=== PATIENT | female | born 1945 | race Caucasian/White ===

== ENCOUNTER → 2017-01-02 | Outpatient (CLI) | payer OTHER ==
[~2017-01-02] MED LIST: ACET-1138 PO; ACET1TAB84 PO; ASPEC325 PO; ASPI81TA28 PO; BNC/20125 PO; CHOL100010 PO; CLR5 PO; EVS60 PO; LAMO200T38 PO; NAPR1TAB9 PO; PRLSR20 PO; RALO60TA12 PO; RSTOPS OP; SIMV10TA5 PO; ULT50X PO; [UNRECOGNIZED DRUG - CODE] PO
--- NOTE | 2017-01-02 12:16 | DIAGNOSTIC IMAGING REPORT ---
LEFT INJ MAJOR JN SHLDR,HIP,KNEE CLINICAL HISTORY: L HIP, 2CC OF CELESTONE, 8CC MARCAINE, INJECTEDhip pain. Arthritis. COMPARISON STUDY: None FLUOROSCOPY TIME: 17 seconds. FINDINGS: Successful administration of 2 cc of Celestone, 8 cc of Marcaine IMPRESSION: Successful left hip injection Electronically signed by: Seferino Del Toro M.D. 01/02/2017 12:15 PM Dictated Date/Time: 01/02/2017 12:14 PM
== END | disposition home or self-care (01) ==
LOC: C.RADBC 09:48
PROVIDERS: ATTEND Orthopaedic Surgery
DX: M16.12 Unilateral primary osteoarthritis, left hip (principal)

== ENCOUNTER → 2017-02-22 | Outpatient (CLI) | payer OTHER ==
[~2017-02-22] MED LIST changes: -BNC/20125 PO; -EVS60 PO; -NAPR1TAB9 PO; -RALO60TA12 PO
[2017-02-22 12:58] LABS: BLOOD UREA NITROGEN 21 mg/dl (7-18); BUN/CREATININE RATIO 17.4 (10-20); CARBON DIOXIDE 32 mmol/L (21-32); CHLORIDE 103 mmol/L (98-107); GLUCOSE 97 mg/dl (70-99); POTASSIUM 4.3 mmol/L (3.5-5.1); SODIUM 141 mmol/L (136-145)
== END | disposition home or self-care (01) ==
LOC: C.LAB 10:44
PROVIDERS: ATTEND Nurse Practitioner
DX: N18.2 Chronic kidney disease, stage 2 (mild) (principal)

== ENCOUNTER 2017-03-01 05:20 | Inpatient (IN) | payer OTHER ==
[2017-02-13 08:28] VITALS: BMI 41.0
--- NOTE | 2017-02-13 09:04 | PAT Medication Instructions ---
Service Date Feb 13, 2017. Current Home Medication List Acetaminophen (Tylenol Arthritis Ext Rel), 1,300 MG PO BID Aspirin (Aspirin Ec), 81 MG PO QAM Cholecalciferol (Vitamin D), 4,000 INTER.UNIT PO QPM Cyclosporine (Restasis Eye Drops), 1 DROP OP BID Desloratadine (Clarinex *), 5 MG PO QAM Lamotrigine (Lamictal), 200 MG PO QAM Omeprazole (Prilosec), 40 MG PO QPM Simvastatin (Zocor), 10 MG PO HS [Spironlactone/Hctz], 1 TAB PO QAM Medication Instructions For Your Scheduled Surgery - Hold the following medications the morning of surgery: [Spironlactone/Hctz], 1 TAB PO QAM Desloratadine (Clarinex *), 5 MG PO QAM - Take the following medications the morning of surgery with a sip of water OTHERWISE NOTHING TO EAT OR DRINK AFTER MIDNIGHT: Acetaminophen (Tylenol Arthritis Ext Rel), 1,300 MG PO BID (may take up to 4 hours prior to surgery if needed) Aspirin (Aspirin Ec), 81 MG PO QAM Lamotrigine (Lamictal), 200 MG PO QAM Cyclosporine (Restasis Eye Drops), 1 DROP OP BID - Take the following medications as scheduled the night before surgery: Acetaminophen (Tylenol Arthritis Ext Rel), 1,300 MG PO BID Omeprazole (Prilosec), 40 MG PO QPM Simvastatin (Zocor), 10 MG PO HS Cyclosporine (Restasis Eye Drops), 1 DROP OP BID Cholecalciferol (Vitamin D), 4,000 INTER.UNIT PO QPM If you have any questions please call us at [phone] or [phone] or [phone]
[2017-02-13 09:50] LABS: BASO % 0.4 %; BASO ABS # 0.02 K/uL (0-0.2); COMPLETE YES; EOS % 3.3 %; HEMATOCRIT 45.6 % (37-47); IG% 0.6 %; LYMPH % 26.4 %; LYMPH ABS # 1.43 K/uL (1.2-3.4); MEAN CELL VOLUME 91.9 fL (80-100); MEAN CORPUSCULAR HEMOGLOBIN 31.3 pg (25-34); MEAN PLATELET VOLUME 11.1 fL (7.4-10.4); MONO % 6.7 %; NEUT % 62.6 %; PLATELET COUNT 189 K/uL (130-400); RED BLOOD COUNT 4.96 M/uL (4.2-5.4); WHITE BLOOD COUNT 5.41 K/uL (4.8-10.8)
[2017-02-13 09:55] LABS: PROTHROMBIN TIME (PATIENT) 10.8 SECONDS (9.0-12.0)
--- NOTE | 2017-02-13 10:01 | DIAGNOSTIC IMAGING REPORT ---
CHEST PREADMISSION(PA/LAT) CLINICAL HISTORY: PAT preoperative evaluation COMPARISON STUDY: 11/20/2015 FINDINGS: Chronic change left base. Lungs otherwise appear clear. Heart top normal in terms of size. IMPRESSION: Chronic change. No acute process. Electronically signed by: Seferino Del Toro M.D. 02/13/2017 9:59 AM Dictated Date/Time: 02/13/2017 9:58 AM
[2017-02-13 11:05] LABS: BUN/CREATININE RATIO 22.1 (10-20); CALCIUM 9.4 mg/dl (8.5-10.1); CREATININE 1.5 mg/dl (0.60-1.20); POTASSIUM 4.6 mmol/L (3.5-5.1)
--- NOTE | 2017-02-24 01:28 | HISTORY & PHYSICAL EXAMINATION ---
DATE OF ADMISSION: 03/01/2017 CHIEF COMPLAINT: Left hip pain and leg pain. HISTORY OF PRESENT ILLNESS: A 71-year-old female who is referred by my partner Dr. Carter for surgical treatment of her left hip. She has a fairly long history of left-sided leg pain and discomfort. She describes back pain, groin pain and thigh pain. As times going on she started to limp more and more on the left side. The more she walks, the more she limps. She did have an intra-articular hip joint injection which did not help her for any significant length of time. Her walking tolerance is a couple of blocks at best. She denies any real numbness. She would like to have her left hip replaced. PAST MEDICAL HISTORY: 1. Hypertension. 2. Elevated cholesterol. 3. Sleep apnea. 4. Bipolar disease. 5. Gastroesophageal reflux disease. 6. Obesity with BMI of 42. 7. Breast cancer. PAST SURGICAL HISTORY: 1. Hysterectomy. 2. Right knee replacement done in 1999. 3. Left knee replacement done in 2002. 4. Cholecystectomy. 5. Breast lumpectomy. 6. Right foot surgery done at [place] 6 months ago for posterior tibial tendon insufficiency. 7. Cataract surgery. ALLERGIES: MECLIZINE AND TEGRETOL. CURRENT MEDICINES: 1. Clarinex 5 mg a day. 2. Omeprazole 20 mg a day. 3. Lamotrigine 200 mg a day. 4. Aspirin 81 mg a day. 5. Simvastatin 20 mg a day. 6. Tylenol Arthritis 3 times a day. 7. Restasis eyedrops. 8. Mobic 15 mg a day. 9. Dyazide once a day. SOCIAL HISTORY: A 71-year-old white female. She is . One child. Does not smoke. FAMILY HISTORY: Significant for heart disease, lung cancer, breast cancer, diabetes. REVIEW OF SYSTEMS: Negative for diabetes. Denies any chest pain. No shortness of breath. No history of DVT or PE. She does have some chronic back pain. PHYSICAL EXAMINATION: GENERAL: Reveals is a pleasant elderly female. HEENT: Benign. NECK: Supple. No lymphadenopathy. LUNGS: Clear to auscultation. HEART: Regular rate and rhythm. ABDOMEN: Soft, nontender, nondistended. EXTREMITIES: Grossly neurovascularly intact except as follows: Examination of the left lower extremity reveals patient walks with an antalgic gait. She uses a cane to walk, but can walk independently. Leg lengths clinically appear pretty equal. She does have pain with any type of hip motion. She has a very stiff hip. Negative straight leg raise. She is neurologically intact. X-RAYS: X-rays of the left hip reveal fairly concentric advanced left hip DJD. She has got essentially complete loss of her joint space. There is a little bit of protrusio. Bone density looks pretty good for her age. She has osteophytes around the femoral head as well as the acetabulum. ASSESSMENT: A 71-year-old white female with left hip and leg pain consistent with advanced left hip arthritis as well as lumbar spondylosis and spinal stenosis. I think both of these conditions contribute some to her symptoms. PLAN: We talked about treatment and she would like to have get some relief of some of the discomfort. She would like to proceed with a left hip replacement. I do think this will help her significantly but it is not going to take away all of her issues and she is aware of that. We are going to take her to the operating room and do a left total hip replacement. The risks and benefits of this procedure were explained to patient including but not limited to DVT, PE, , infection, neurological injury, vascular injury, bleeding problems, pain, limited range of motion, stiffness, failure to relieve symptoms, incomplete relief of symptoms, need for further surgery in the future, fracture, leg length inequality, nerve palsy, etc. The patient understands and desires to proceed. Informed consent was obtained. The patient did have preoperative workup. Everything looked really pretty good, but her creatinine was a little bit elevated. It was repeated and on repeat testing it was 1.20 within the normal range. As far as discharge plans, she is planning to be discharged to home using [facility] program. CAITLYN
[2017-03-01] VITALS (22 sets, daily range): BP systolic 119–148; BP diastolic 73–84; PULSE 64–86; TEMP 35.6–37.2; O2SAT 93–100; Ht 165.1 cm; Wt 114.1 kg
[~2017-03-01] VITALS: Ht 165.1 cm; Wt 114.1 kg
[~2017-03-01 05:20] MED LIST changes: -ACET-1138 PO; -ASPEC325 PO; -ULT50X PO
[2017-03-01] MEDS ORDERED: ACETAMINOPHEN 500 MG TAB PO SCH (06:00)
[2017-03-01] MEDS ORDERED: GABAPENTIN 300 MG CAP PO SCH (06:00)
[2017-03-01] MEDS ORDERED: METOCLOPRAMIDE HCL 10 MG TAB PO SCH (06:00)
[2017-03-01] MEDS ORDERED: TRANEXAMIC ACID INJ 1,000 MG in SODIUM CHLORIDE 0.9% 100ML 100 ML IV SCH (06:00)
[2017-03-01] MEDS ORDERED: FAMOTIDINE 20 MG TAB PO SCH (06:00)
[2017-03-01] MEDS ORDERED: CEFAZOLIN 2000 MG/60 ML D5W 60 ML IV SCH (06:00)
[2017-03-01] MEDS ORDERED: LACTATED RINGER'S 1000ML IV SCH ×2 (06:00)
[2017-03-01] MEDS ORDERED: SCOPOLAMINE 1.5 MG TDSY TD SCH (06:00)
[2017-03-01 06:22] LABS: BLOOD UREA NITROGEN 27 mg/dl (7-18); BUN/CREATININE RATIO 18.3 (10-20); CALCIUM 10.2 mg/dl (8.5-10.1); CARBON DIOXIDE 29 mmol/L (21-32); CHLORIDE 103 mmol/L (98-107); GLUCOSE 111 mg/dl (70-99); SODIUM 137 mmol/L (136-145)
[2017-03-01] MEDS ORDERED: BUPIVACAINE 0.5 % 5 MG/1 ML PF 10ML VIAL ONE (06:25)
--- NOTE | 2017-03-01 06:49 | History & Physical Bridge Note ---
H&P Re-Evaluation Bridge Note: I have examined the patient, reviewed the History & Physical and in the interval since the performance of the History & Physical I have noted the following changes of clinical significance: No changes noted
[2017-03-01] MEDS ORDERED: MoRPHine SULFATE PF 1 MG/ML 10 ML AMP/VIAL ONE (06:50)
[2017-03-01] MEDS ORDERED: MIDAZOLAM HCL 1 MG/ML 2ML VIAL ONE ×2 (06:50→06:52)
[2017-03-01] MEDS ORDERED: BUPIVACAINE/EPINEPHRINE 0.5% MPF 1:200,000 30 ML VIAL ONE (06:52)
[2017-03-01] MEDS ORDERED: FENTANYL CITRATE INJ 50 MCG/1 ML 2 ML VIAL ONE (06:52)
[2017-03-01] MEDS ORDERED: BACITRACIN 50000 UNIT VIAL ONE (06:52)
[2017-03-01] MEDS ORDERED: PROPOFOL IV EMULSION 10 MG/ML 20 ML VIAL IV ONE ×2 (07:32→07:47)
[2017-03-01] MEDS ORDERED: LIDOCAINE HCL 2% 2 ML VIAL (20MG/ML) ONE (07:32)
[2017-03-01] MEDS ORDERED: SODIUM CHLORIDE 0.9% 1000ML 1,000 ML IV PRN (08:14)
[2017-03-01] MEDS ORDERED: NALOXONE HCL INJ 1 MG in SODIUM CHLORIDE 0.9% 1000ML 1,000 ML IV PRN (08:14)
[2017-03-01] MEDS ORDERED: LACTATED RINGER'S 1000ML 500 ML IV PRN (08:14)
[2017-03-01] MEDS ORDERED: NALOXONE HCL INJ 0.08 MG in SYRINGE 1.8 ML IV PRN (08:14)
[2017-03-01] MEDS ORDERED: DiphenhydrAMINE HCL 50 MG/ML VIAL IV PRN ×2 (08:15)
[2017-03-01] MEDS ORDERED: NALBUPHINE HCL INJ 10 MG/ML AMP IV PRN (08:15)
[2017-03-01] MEDS ORDERED: FENTANYL CITRATE INJ 50 MCG/1 ML 2 ML VIAL IV PRN (08:15)
[2017-03-01] MEDS ORDERED: LABETALOL HCL IV 5 MG/ML 20ML IV PRN (08:15)
[2017-03-01] MEDS ORDERED: MEPERIDINE HCL 25 MG/ML CARP IV PRN ×2 (08:15)
[2017-03-01] MEDS ORDERED: ATROPINE SULFATE 0.1 MG/ML 5ML SYR IV PRN (08:15)
[2017-03-01] MEDS ORDERED: KETOROLAC TROMETHAMINE 30 MG/ML VIAL IV. PRN (08:15)
[2017-03-01] MEDS ORDERED: ONDANSETRON INJ 2 MG/ML 2 ML VIAL IV PRN ×2 (08:15)
[2017-03-01] MEDS ORDERED: NO NARCOTICS OR SEDATIVES SCH (08:15)
[2017-03-01] MEDS ORDERED: EpHEDrine SULFATE INJ 50 MG/ML AMP IV PRN ×2 (08:15)
[2017-03-01] MEDS ORDERED: NALOXONE HCL 0.4 MG/1 ML VIAL/CARP IV PRN (08:15)
[2017-03-01] MEDS ORDERED: MoRPHine SULFATE PF 1 MG/ML 10 ML AMP/VIAL EPI PRN (08:15)
[2017-03-01] MEDS ORDERED: HYDROmorphone INJ 1 MG/ML SYR IV PRN (08:15)
[2017-03-01] MEDS ORDERED: MoRPHine SULFATE 2 MG/ML CARP IV PRN (08:15)
--- NOTE | 2017-03-01 08:51 | [facility] Post Operative Brief Note ---
Immediate Operative Summary Operative Date Mar 01, 2017. Pre-Operative Diagnosis Left Hip Degenerative Joint Disease Post-Operative Diagnosis Left Hip Degenerative Joint Disease Procedure(s) Performed Left Total Hip Arthroplasty, Uncemented Surgeon Dr. Alexandre It Application Support Analyst Surgeon(s) Evan Walden PA-C Estimated Blood Loss 300 mL Findings Left Hip DJD Fluids (cc crystalloids) 1500 cc Specimens A: Left Femoral Head Drains None Anesthesia Spinal Complication(s) None Disposition Recovery Room / PACU
[2017-03-01] MEDS ORDERED: PANTOprazole SOD 40 MG TAB PO SCH (09:00)
[2017-03-01] MEDS ORDERED: ALUMINUM/MAGNESIUM/SIMETH (MAALOX MAX) 30 ML UDC PO PRN (09:00)
[2017-03-01] MEDS ORDERED: SILVER SULFADIAZINE 1% CR 50 GM JAR EXT PRN (09:00)
[2017-03-01] MEDS ORDERED: MAGNESIUM HYDROXIDE SUSP 30 ML UDC PO PRN (09:00)
[2017-03-01] MEDS ORDERED: BISACODYL 10 MG SUPP PR PRN (09:00)
--- NOTE | 2017-03-01 09:25 | OPERATIVE REPORT ---
DATE OF OPERATION: 03/01/2017 SURGEON: Tanmay Alexandre MD AIRPORT SECURITY SCREENER: QUINN Capone PREOPERATIVE DIAGNOSIS: Left hip degenerative joint disease. POSTOPERATIVE DIAGNOSIS: Same. PROCEDURE PERFORMED: Left uncemented total hip arthroplasty. COMPLICATIONS: None. ESTIMATED BLOOD LOSS: 300 mL. FLUID REPLACEMENT: 1500 mL crystalloid fluid replacement. ANESTHESIA: Spinal. DRAINS: None. SPECIMENS: Left femoral head sent for pathology. OPERATIVE INDICATIONS: The patient is a 72-year-old female who has had a fairly long history of hip and back problems. She has been managed by my partner Dr. Carter. Over the years, she developed increased pain and discomfort in her left hip. X-rays revealed advanced left hip DJD. She elected to proceed with operative treatment. OPERATIVE FINDINGS: Operative findings revealed advanced left hip DJD. She had grade 4 [id number] disease of the femoral head and acetabulum. She had fairly concentric arthritic change with a little bit of protrusio over the acetabulum and extensive osteophytes, particularly around the acetabulum. She had a moderate sized joint effusion. Some moderate synovitis. OPERATIVE IMPLANTS: Operative implants consisted of: 1. Biomet G7 size 50-mm acetabular shell. 2. An apex hole eliminator. 3. A 6.5 cancellous acetabular screws, 1 at 35 mm length and 1 at 25 mm in length. 4. A highly cross-linked polyethylene liner with a 50 mm outer diameter and 32 mm inner diameter. 5. A DePuy size 12 small stature AML femoral stem. 6. A +1/32 mm metal articular ball. OPERATIVE PROCEDURE: The patient was taken to the operating room, identified and placed on the operating table in the supine position. All contact areas were appropriately padded. IV antibiotics were provided by the anesthesia team. Spinal anesthetic had been implemented in the holding area. Redmond catheter was placed in sterile fashion. The patient was then placed in the right lateral decubitus position. An axillary roll was placed. Stulberg hip positioner was used for positioning. The left hip and leg were then prepped and draped in usual sterile fashion. A posterolateral approach to the left hip was then performed through a curvilinear incision centered over the greater trochanter. Sharp dissection was carried through the subcutaneous tissue down to the level of the IT band and gluteal fascia. The IT band and gluteal fascia were then incised longitudinally in line with skin incision. The underlying greater trochanteric bursa was excised. The piriformis and external rotators were tagged and taken off the posterior aspect of the femur. Great care was taken throughout the procedure to protect the sciatic nerve at all times. A posterior capsulotomy was then performed leaving a large flap for later repair. Hip was internally rotated and dislocated. Femoral neck osteotomy cut was made with the final cut about 11 mm above the lesser trochanter. Femoral head was removed and sent for pathology. The femur was retracted anteriorly. Attention was then drawn to the acetabulum. The acetabulum labrum was excised. The pulvinar fat was excised. Sequential reaming of the acetabulum was then performed beginning with a size 43 and progressing up to 49. I did use a 50 reamer just to open up the outside as her acetabulum had a small opening. A 50-mm Biomet G7 acetabular shell was then placed in about 40 degrees of lateral opening and 20 degrees of anteversion. It was fixed with two 6.5 cancellous acetabular screws. Some moderate anterior osteophytes were removed. A trial liner was placed. Attention was then drawn to the femur. The proximal femur was entered with a cookie cutter followed by canal finder and lateralizing reamer. Sequential reaming of the femur was then performed beginning with a size 9 and progressing up to a little 11.5. We got good chatter at 11.5. I broached beginning with a size 10.5 broach and progressing to a 12 small. This got good fit. The calcar reamer was used to smoothen off the calcar. We then trialed the hip. I felt that the +5 articular ball was just a little bit tight and increased her leg length slightly. With the +1/32 mm articular ball, the hip was fully stable in full extension and external rotation and flexion to 90 degrees, internal rotation to 60 degrees. We elected to use these implants. All trial implants were removed. An apex hole eliminator was placed. A highly cross-linked polyethylene liner was placed. A 12 small stature AML femoral stem was placed. I did ream partway down the canal with a 12 reamer as it was initially quite tight and had about 10 cm of scratch fit. Even doing this, I could not quite set the implant down to the calcar cut. A +1/32 mm metal articular ball was placed. Hip was located and once again found to be stable. Attention was then drawn toward closing. The wound was irrigated with copious amounts of pulsatile lavage solution. I did inject locally with 60 mL of 0.5% Marcaine with epinephrine. The posterior capsule and external rotators were repaired through drill holes in the posterior trochanter with #2 Ti-Cron suture. The deep subcutaneous tissues were closed with #2 Vicryl suture in a buried interrupted fashion. The subcutaneous tissues were then closed with 2-0 Dexon suture in a buried interrupted fashion. Skin was closed skin sha. Leg was then cleaned and dried and a sterile dressing of Xeroform, 4 x 4, sterile ABD pad and foam tape was applied. The patient then transferred to the recovery room in stable condition. The patient tolerated the procedure well with no complications. All needle and sponge counts were correct at the end of the operation. I attest to the content of the Intraoperative Record and any orders documented therein. Any exceptions are noted below. CAITLYN
--- NOTE | 2017-03-01 09:53 | DIAGNOSTIC IMAGING REPORT ---
AP PELVIS, CROSSTABLE LATERAL LEFT HIP History: Left total hip arthroplasty. Degenerative arthritis. Postop. FINDINGS: The patient is status post a left total hip arthroplasty. The hardware is intact. No fracture or dislocation. Skin sha are in place. IMPRESSION: Left total hip arthroplasty. No evidence for hardware complication. Electronically signed by: Blair Keller M.D. 03/01/2017 9:51 AM Dictated Date/Time: 03/01/2017 9:51 AM
--- NOTE | 2017-03-01 09:59 | Anesthesiology Progress Note ---
Anesthesia Post Op Note Date & Time Mar 01, 2017 at 09:58 Vital Signs Pain Intensity: 0 Vital Signs Past 12 Hours Date Time Temp Pulse Resp B/P Pulse Ox O2 Delivery O2 Flow Rate FiO2 03/01/17 09:30 36.4 79 18 126/78 97 Nasal Cannula 2 03/01/17 09:20 36.4 80 18 108/68 97 Nasal Cannula 2 03/01/17 09:10 80 18 123/61 97 Nasal Cannula 2 03/01/17 09:00 78 18 114/65 99 Mask 10 03/01/17 08:50 36.9 81 16 126/58 98 Mask 10 03/01/17 05:50 36.6 86 18 131/80 94 Room Air Notes Mental Status: alert / awake / arousable, participated in evaluation Pt Amnestic to Procedure: Yes Nausea / Vomiting: adequately controlled Pain: adequately controlled Airway Patency, RR, SpO2: stable & adequate BP & HR: stable & adequate Hydration State: stable & adequate Neuraxial Anesthesia: was administered, sensory block is resolving Anesthetic Complications: no major complications apparent
[2017-03-01] MEDS: D5W AND 1/2NSS + 20MEQ KCL 1,000 ML IV SCH ×3 (11:25→23:44)
[2017-03-01] MEDS ORDERED: POLYETHYLENE (MIRALAX) 17 GM PACK PO STA (11:49)
--- NOTE | 2017-03-01 13:19 | PROGRESS NOTE ---
DATE: 03/01/2017 SUBJECTIVE: A 72-year-old female postop from a left total hip replacement. She is doing well. Not having any pain yet. No chest pain or shortness of breath. Not feeling dizzy or lightheaded. OBJECTIVE: VITAL SIGNS: Temperature is 36.5. Vital signs stable. PHYSICAL EXAMINATION: GENERAL: Reveals a pleasant elderly female. Awake when I went into the room this afternoon. She is lying in bed and looks comfortable. LUNGS: Clear to auscultation. HEART: Regular rate and rhythm. ABDOMEN: Soft, nontender, and nondistended. EXTREMITIES: Grossly neurovascularly intact except as follows: Examination of the left leg reveals the leg lengths to be equal. The dressing is clean, dry and intact. She can dorsiflex and plantarflex her foot appropriately. She is neurologically intact. X-RAYS: X-rays of the left hip from recovery room were reviewed. It shows a left uncemented total hip replacement. Components looked to be in good position. No signs of problems. ASSESSMENT: A 72-year-old female postop from left total hip replacement, doing well. Her pain is controlled. She is neurologically intact. Hip is located. PLAN: 1. DVT prophylaxis including thigh-high TEDs, SCDs, and aspirin twice a day. 2. PT/OT. Weightbearing as tolerated. Left total hip protocol. 3. Pain control, doing well with current pain regimen. 4. IV antibiotics x24 hours. 5. Disposition: She is planning to be discharged to home with some home health once adequately recovered.
[2017-03-01] MEDS: RESTASIS~ORDER AWAITING ACTION SCH ×3 (13:32→23:44)
[2017-03-01] MEDS: CLARINEX~ORDER AWAITING ACTION SCH ×3 (13:32→23:44)
[2017-03-01] MEDS: FERROUS GLUCONATE 324 MG TAB PO SCH ×2 (13:33→17:52)
[2017-03-01] MEDS: NYSTATIN POWDER 15GM BTL EXT SCH ×2 (13:35→21:15)
[2017-03-01] MEDS: ACETAMINOPHEN 500 MG TAB PO SCH ×2 (13:36→21:18)
--- NOTE | 2017-03-01 13:49 | Medical Consult ---
Consultation Date of Consultation: Mar 01, 2017. Attending Physician: Tanmay Alexandre M.D. Reason for Consultation: post-op medical management History of Present Illness Pleasant 72yo female with h/o bipolar d/o, HTN, GERD, and untreated PEDRO who presented today for elective left total hip replacement. I saw her post-op on the orthopedic floor and she was resting comfortably. She denied any chest pain, sob, abdominal pain. She reports an ongoing pruritic rash in the lower skin folds of her abdominal wall, recently treated with diflucan. In addition, she is concerned she is going to develop constipation as she developed such last year at [facility] following her foot surgery. She started taking a stool softener last week in preparation for today's surgery. Past Medical/Surgical History PMH: 1. Hypertension. 2. Hyperlipidemia. 3. Sleep apnea, but has never been on CPAP. 4. Bipolar Disorder. 5. GERD. 6. Obesity with BMI of 42. 7. history of breast cancer. PSH: 1. Hysterectomy. 2. Right knee replacement done in 1999. 3. Left knee replacement done in 2002. 4. Cholecystectomy. 5. Breast lumpectomy. 6. Right foot surgery (posterior tibialis tendon) - [facility] - 2015. 7. Cataract surgery b/l. Family History mother - from lung cancer - age 67 farther - etoh abuse; from pulmonary disease/complications - age 64 Social History Smoking Status: Former Smoker (quit 35 years ago) Smokeless Tobacco Use: No Alcohol Use: none Drug Use: none Marital Status: (1 son) Housing Status: lives with family ([place]) Occupation Status: retired (worked at [employer]) Allergies Coded Allergies: Carbamazepine (Verified Allergy, Unknown, ITCHY, INVOLUNTARY BODY MOVEMENTS, 03/01/17) Dust (Verified Allergy, Unknown, ITCHY EYES, STUFFY, 03/01/17) Movico (Verified Allergy, Unknown, ITCHY EYES STUFFY, 03/01/17) Grass (Verified Allergy, Unknown, ITCHY EYES STUFFY, 03/01/17) Bhagat's Quarter (Verified Allergy, Unknown, ITCHY EYES, STUFFY, 03/01/17) Molds and Smuts (Verified Allergy, Unknown, ITCHY EYES, STUFFY, 03/01/17) Ragweed (Verified Allergy, Unknown, ITCHY EYES, STUFFY, 03/01/17) Current Inpatient Medications Current Inpatient Medications Medications (Trade) Dose Ordered Sig/Jon Route Start Time Stop Time Status Last Admin Dose Admin Lactated Ringer's (Lr 1000ml) 1,000 ml @ 60 mls/hr [id number] IV 03/01/17 06:00 03/01/17 22:39 03/01/17 06:07 60 MLS/HR Scopolamine (Transderm-Scop Patch) 1.5 mg PREOP TD 03/01/17 06:00 03/01/17 15:00 03/01/17 06:09 1.5 MG Miscellaneous (Remove Transderm-Scop Patch) 1 ea Q72H N/A 03/04/17 06:00 03/04/17 06:01 Miscellaneous Information 1 ea 1 ea QS N/A 03/01/17 16:00 03/04/17 05:59 Lactated Ringer's (Lr 1000ml) 1,000 ml @ 15 mls/hr Q24H IV 03/01/17 06:00 03/02/17 05:59 Fentanyl Citrate (Fentanyl Inj) 50 mcg Q5M PRN IV 03/01/17 08:15 03/01/17 11:30 UNV Hydromorphone HCl (Dilaudid Inj) 0.5 mg Q5M PRN IV 03/01/17 08:15 03/01/17 11:30 UNV Meperidine HCl (Demerol Inj) 25 mg Q5M PRN IV 03/01/17 08:15 03/01/17 11:30 UNV Ondansetron HCl (Zofran Inj) 4 mg ONE PRN IV 03/01/17 08:15 03/01/17 11:30 UNV Labetalol HCl (Normodyne IV) 5 mg Q5M PRN IV 03/01/17 08:15 03/01/17 11:30 UNV Ephedrine Sulfate (EpHEDrine SULFATE INJ) 5 mg Q5M PRN IV 03/01/17 08:15 03/01/17 11:30 UNV Atropine Sulfate (Atropine Sulfate 0.1MG/Ml Inj) 0.5 mg Q1M PRN IV 03/01/17 08:15 03/01/17 11:30 UNV Naloxone HCl (Narcan Inj) 0.1 mg UD PRN IV 03/01/17 08:15 03/02/17 08:14 UNV Diphenhydramine HCl (Benadryl Inj) 25 mg Q6H PRN IV 03/01/17 08:15 03/02/17 08:14 UNV Nalbuphine HCl 5 mg 5 mg Q10M PRN IV 03/01/17 08:15 03/02/17 08:14 UNV Naloxone HCl/ Sodium Chloride (Narcan Inj/Nss 1000ml) 1,002.5 ml @ 50 mls/hr Q20H3M PRN IV 03/01/17 08:14 03/02/17 08:13 UNV Ondansetron HCl (Zofran Inj) 4 mg Q6H PRN IV 03/01/17 08:15 03/02/17 08:14 UNV Ketorolac Tromethamine (Toradol Inj) 30 mg Q6H PRN IV. 03/01/17 08:15 03/02/17 08:14 UNV Meperidine HCl (Demerol Inj) 25 mg Q15M PRN IV 03/01/17 08:15 03/02/17 08:14 UNV Miscellaneous Information (Dc Intraspinal Morphine) 1 ea ONE N/A 03/01/17 08:15 03/02/17 08:14 UNV Miscellaneous Information 1 ea 1 ea UD N/A 03/01/17 08:15 03/02/17 08:14 UNV Naloxone HCl/ Syringe (Narcan Inj/ Syringe) 2 ml @ 1 mls/min Q2M PRN IV 03/01/17 08:14 03/02/17 08:13 UNV Diphenhydramine HCl (Benadryl Cap) 50 mg HS PRN PO 03/01/17 08:15 03/02/17 08:14 UNV Diphenhydramine HCl (Benadryl Inj) 25 mg HS PRN IV 03/01/17 08:15 03/02/17 08:14 UNV Morphine Sulfate 2 mg 2 mg Q6H PRN IV 03/01/17 08:15 03/15/17 08:14 UNV Lactated Ringer's (Lr 1000ml) 500 ml @ 999 mls/hr Q31M PRN IV 03/01/17 08:14 03/02/17 08:13 UNV Ephedrine Sulfate (EpHEDrine SULFATE INJ) 10 mg Q5M PRN IV 03/01/17 08:15 03/02/17 08:14 UNV Morphine Sulfate TODAY PRN EPI 03/01/17 08:15 UNV Sodium Chloride 1,000 ml @ 15 mls/hr Q24H PRN IV 03/01/17 08:14 03/31/17 08:13 UNV Potassium Chloride/Dextrose/ Sod Cl (D5W And 1/2nss + 20meq KCl) 1,000 ml @ 150 mls/hr Q6H40M IV 03/01/17 11:30 03/02/17 11:29 Ketorolac Tromethamine (Toradol Inj) 15 mg Q6H IV. 03/01/17 09:00 03/03/17 08:59 UNV Acetaminophen (Tylenol Tab) 1,000 mg Q8H PO 03/01/17 09:00 03/31/17 08:59 UNV Magnesium Hydroxide (Milk Of Magnesia Susp) 30 ml Q6H PRN PO 03/01/17 09:00 03/31/17 08:59 UNV Bisacodyl (Dulcolax Supp) 10 mg DAILY PRN ME 03/01/17 09:00 03/31/17 08:59 UNV Docusate Sodium (coLACE CAP) 100 mg BID PO 03/01/17 09:00 03/31/17 08:59 UNV Al Hydrox/Mg Hydrox/Simethicone (Maalox Max Susp) 15 ml Q4H PRN PO 03/01/17 09:00 03/31/17 08:59 UNV Zolpidem Tartrate (Ambien Tab) 5 mg HSZ PRN PO 03/01/17 09:00 03/31/17 08:59 UNV Multivitamins (Multivitamin Tab) 1 tab QAM PO 03/01/17 09:00 03/31/17 08:59 UNV Ondansetron HCl (Zofran Inj) 4 mg Q6H PRN IV 03/01/17 09:00 03/31/17 08:59 UNV Metoclopramide HCl (Reglan Inj) 10 mg Q6H PRN IV 03/01/17 09:00 03/31/17 08:59 UNV Ferrous Gluconate (Ferrous Gluconate Tab) 324 mg TIDM PO 03/01/17 12:00 03/31/17 11:59 UNV Pantoprazole Sodium (Protonix Tab) 40 mg QAM PO 03/01/17 09:00 03/31/17 08:59 UNV Silver Sulfadiazine (Silvadene 1% Crm 50GM Jar) 1 appln BID PRN EXT 03/01/17 09:00 03/31/17 08:59 UNV Aspirin (Ecotrin Tab) 325 mg BID PO 03/01/17 09:00 03/31/17 08:59 UNV Tramadol HCl 1 TABLET FOR PAIN RATING... Q4H PRN PO 03/01/17 09:00 03/31/17 08:59 UNV Cefazolin Sodium 2000 mg/Dextrose 60 ml @ 100 mls/hr Q8H IV 03/01/17 09:00 03/01/17 17:35 UNV Tranexamic Acid/ Sodium Chloride (Cyklokapron Inj/ Nss 100ml) 110 ml @ 660 mls/hr ONE ONCE IV 03/01/17 09:00 03/01/17 09:09 UNV Cholecalciferol (Vitamin D Tab) 4,000 inter.unit QPM PO 03/01/17 21:00 03/31/17 20:59 UNV Lamotrigine (Lamictal Tab) 200 mg QAM PO 03/01/17 09:00 03/31/17 08:59 UNV Simvastatin (Zocor Tab) 10 mg HS PO 03/01/17 21:00 03/31/17 20:59 UNV Non-Formulary Medication (Acetaminophen (Tylenol Arthritis Ext Rel)) 1,300 mg BID PO 03/01/17 09:00 03/31/17 08:59 UNV Non-Formulary Medication (Cyclosporine (Restasis Eye Drops)) 1 drop BID OP 03/01/17 09:00 03/31/17 08:59 UNV Non-Formulary Medication (Desloratadine (Clarinex *)) 5 mg QAM PO 03/01/17 09:00 03/31/17 08:59 UNV Non-Formulary Medication (Omeprazole (Prilosec)) 40 mg QPM PO 03/01/17 21:00 03/31/17 20:59 UNV Non-Formulary Medication ([Spironlactone/ Hctz] ) 1 tab QAM PO 03/01/17 09:00 03/31/17 08:59 UNV Hydromorphone HCl (Dilaudid Inj) 0.5 mg Q1H PRN IM 03/01/17 11:00 03/15/17 10:59 UNV Review of Systems Constitutional: No chills, No fatigue, No fever, No sweats Eyes: No worsening of vision ENT: No nasal symptoms, No trouble swallowing Respiratory: No cough, No dyspnea on exertion, No shortness of breath, No sputum, No wheezing Cardiovascular: + edema (right foot due to past surgery), No chest pain, No orthopnea Abdomen: No GI bleeding, No constipation, No diarrhea, No nausea, No pain, No vomiting Musculoskeletal: + joint pain (left hip) Genitourinary - Female: No dysuria (none at home recently ) Neurologic: No numbness/tingling, No weakness Psychiatric: No anxiety, No depression symptoms (bipolar under good control) Endocrine: No fatigue Hematologic / Lymphatic: No abnormal bleeding/bruising Integumentary: + itch, + rash Physical Exam Date Time Temp Pulse Resp B/P Pulse Ox O2 Delivery O2 Flow Rate FiO2 03/01/17 11:00 16 99 03/01/17 10:50 35.6 73 19 143/84 98 Nasal Cannula 2.0 03/01/17 10:20 72 18 124/73 95 Nasal Cannula 2.0 03/01/17 09:50 95 Venturi Mask 2.0 03/01/17 09:50 16 95 03/01/17 09:50 Nasal Cannula 2.0 03/01/17 09:50 36.3 76 16 129/76 95 Nasal Cannula 2.0 03/01/17 09:30 36.4 79 18 126/78 97 Nasal Cannula 2 03/01/17 09:20 36.4 80 18 108/68 97 Nasal Cannula 2 03/01/17 09:10 80 18 123/61 97 Nasal Cannula 2 03/01/17 09:00 78 18 114/65 99 Mask 10 03/01/17 08:50 36.9 81 16 126/58 98 Mask 10 03/01/17 05:50 36.6 86 18 131/80 94 Room Air General Appearance: no apparent distress, + obese Head: normocephalic, atraumatic Eyes: PERRL ENT: pharynx normal Neck: thyroid normal, no JVD, + adenopathy present (1cm nodes b/l) Respiratory/Chest: lungs clear, no respiratory distress, no accessory muscle use Cardiovascular: regular rate, rhythm, no gallop, no murmur, normal peripheral pulses Abdomen/GI: normal bowel sounds, non tender, soft, no organomegaly, no pulsatile mass Back: normal inspection Extremities/Musculoskelatal: + pedal edema (right foot only, trace), + pertinent finding (adductor pillow in place; SCDs in place b/l legs) Neurologic/Psych: alert, oriented x 3, + pertinent finding (strength 5/5 x 4 exts) Skin: + rash (intertrigo (santos) lower skin folds of abdominal wall and groin ) Laboratory Results Last 24 Hours Test 03/01/17 05:50 03/01/17 06:27 Sodium Level 137 mmol/L Potassium Level mmol/L 4.3 mmol/L Chloride Level 103 mmol/L Carbon Dioxide Level 29 mmol/L Anion Gap 5.0 mmol/L Blood Urea Nitrogen 27 mg/dl Creatinine 1.50 mg/dl Est Creatinine Clear Calc Drug Dose 42.7 ml/min Estimated GFR () 39.9 Estimated GFR (Non- 34.4 BUN/Creatinine Ratio 18.3 Random Glucose 111 mg/dl Calcium Level 10.2 mg/dl Assessment & Plan 72yo female with HTN, GERD, bipolar disorder, and untreated PEDRO who underwent elective left THR today by Dr. Tanmay Alexandre. 1. left THR - DVT proph, fluids, pain control, dispo planning - per orthopedic team. 2. intertrigo rash - nystatin powder TID. 3. constipation - miralax BID. May need stimulant laxative as well but defer for now. 4. HTN - hold home meds (aldactone/HCTZ) for now. Follow BPs and AM BMP. 5. GERD - PPI. 6. untreated but sleep-study confirmed PEDRO - watch for signs/symptoms of hypercarbia post-op. Thus far I see no signs of such. Avoid excessive use of any sedating meds, if possible. 7. CKD stage 3 - creatinine preop was 1.5; today 1.5. Repeat BMP in am for stability. 8. bipolar disorder - continue lamictal. This condition has been well- controlled for many years. 9. hyperlipidemia - zocor. Thank you for this consult. The hospitalist team will follow with you. Bernardo Catherine MD Additional Copies To Pedro Moss D.O.
[2017-03-01] MEDS ORDERED: TRANEXAMIC ACID INJ 1,000 MG in SODIUM CHLORIDE 0.9% 100ML 100 ML IV ONE (15:00)
[2017-03-01] MEDS: CHECK SCOPOLAMINE PATCH PLACEMENT SCH ×2 (16:44→23:44)
[2017-03-01] MEDS: CEFAZOLIN IV 2,000 MG in DEXTROSE 5% 50ML 50 ML IV SCH ×2 (16:44→23:43)
[2017-03-01] MEDS ORDERED: NURSING VERBAL MED ORDER ONE (18:00)
[2017-03-01] MEDS: PANTOprazole SOD 40 MG TAB PO SCH ×2 (19:28→21:00)
[2017-03-01] MEDS: CHOLECALCIFEROL 1000 INTER.UNIT TAB PO SCH (21:00)
[2017-03-01] MEDS: POLYETHYLENE (MIRALAX) 17 GM PACK PO SCH (21:00)
[2017-03-01] MEDS: DOCUSATE SODIUM 100 MG CAP PO SCH (21:15)
[2017-03-01] MEDS: SIMVASTATIN 10 MG TAB PO SCH (21:17)
[2017-03-01] MEDS: ASPIRIN 325 MG ECTAB PO SCH (21:19)
[2017-03-02] VITALS (7 sets, daily range): BP systolic 126–134; BP diastolic 75–82; PULSE 58–81; TEMP 36.7–37; O2SAT 93–99
[2017-03-02] MEDS ORDERED: ZOLPIDEM TARTRATE 5 MG TAB PO PRN (01:00)
[2017-03-02] MEDS ORDERED: DC INTRASPINAL MORPHINE SCH (01:00)
[2017-03-02] MEDS ORDERED: ONDANSETRON INJ 2 MG/ML 2 ML VIAL IV PRN (01:00)
[2017-03-02] MEDS ORDERED: HYDROmorphone INJ 0.5 MG/0.5 ML SYR IV PRN (01:00)
[2017-03-02] MEDS ORDERED: METOCLOPRAMIDE HCL INJ 5 MG/ML 2 ML VIAL IV PRN (01:00)
[2017-03-02] MEDS: D5W AND 1/2NSS + 20MEQ KCL 1,000 ML IV SCH (06:25)
[2017-03-02] MEDS: KETOROLAC TROMETHAMINE 15 MG/ML VIAL IV. SCH ×4 (06:25→23:30)
[2017-03-02] MEDS: ACETAMINOPHEN 500 MG TAB PO SCH ×3 (06:25→20:42)
[2017-03-02 06:46] LABS: BASO % 0.1 %; BASO ABS # 0.01 K/uL (0-0.2); COMPLETE YES; EOS % 0.5 %; HEMATOCRIT 40.3 % (37-47); IG% 0.4 %; LYMPH % 5.5 %; MEAN CORPUSCULAR HEMOGLOBIN 31.6 pg (25-34); MEAN CORPUSCULAR HGB CONC 33.3 g/dl (32-36); MEAN PLATELET VOLUME 11.4 fL (7.4-10.4); MONO % 8.7 %; NEUT % 84.8 %; PLATELET COUNT 191 K/uL (130-400); RED BLOOD COUNT 4.24 M/uL (4.2-5.4); WHITE BLOOD COUNT 12.66 K/uL (4.8-10.8)
[2017-03-02 07:21] LABS: BUN/CREATININE RATIO 16.9 (10-20); CALCIUM 8.7 mg/dl (8.5-10.1); CREATININE 1.1 mg/dl (0.60-1.20); POTASSIUM 4.2 mmol/L (3.5-5.1)
[2017-03-02] MEDS: CHECK SCOPOLAMINE PATCH PLACEMENT SCH ×3 (07:32→23:30)
[2017-03-02] MEDS: RESTASIS~ORDER AWAITING ACTION SCH ×2 (07:37→16:00)
[2017-03-02] MEDS: CLARINEX~ORDER AWAITING ACTION SCH ×2 (07:37→16:00)
--- NOTE | 2017-03-02 07:45 | PROGRESS NOTE ---
DATE: 03/02/2017 DATE: 03/02/2017. SUBJECTIVE: A 72-year-old white female postop day 1 from a left total hip replacement. She is doing pretty well. She was up and around last evening and has pain when she was walking but really not having much pain at all while resting in bed. Denies any chest pain or shortness of breath. Not feeling dizzy or lightheaded. OBJECTIVE: VITAL SIGNS: Temperature 37.0. Vital signs stable. PHYSICAL EXAMINATION: GENERAL: Reveals a healthy pleasant elderly female. She is lying in bed, looks pretty comfortable. LUNGS: Clear to auscultation. HEART: Regular rate and rhythm. ABDOMEN: Soft, nontender, nondistended. EXTREMITY EXAMINATION: Grossly neurovascularly intact except as follows: Examination of left hip and leg reveals the dressing to be clean, dry and intact. Hip is located. She can dorsiflex and plantarflex her foot appropriately. She is neurologically intact. LABORATORY DATA: Hemoglobin 13.4, hematocrit 40.3. White cell count 12.66. Electrolytes are stable. Creatinine is actually improved at 1.10. ASSESSMENT: A 72-year-old white female postop day 1 from left total hip replacement, doing pretty well. Having some pain with motion which is expected. Her hip is located. She is neurologically intact. PLAN: 1. DVT prophylaxis including thigh-high TEDs, SCDs, and aspirin twice a day. 2. PT/OT. Weight bear as tolerated. Left total hip protocol. 3. Doing pretty good with current pain regimen. 4. Medical management as per the medicine service. 5. Disposition. She is hoping to be discharged to home with home health once adequately recovered.
--- NOTE | 2017-03-02 08:10 | Anesthesiology Progress Note ---
Anesthesia Post Op Note Date & Time Mar 02, 2017 at 08:09 Vital Signs Pain Intensity: 0.0 Vital Signs Past 12 Hours Date Time Temp Pulse Resp B/P Pulse Ox O2 Delivery O2 Flow Rate FiO2 03/02/17 06:49 37.0 75 19 128/77 95 Room Air 03/02/17 03:33 36.7 81 16 134/75 93 Room Air 03/02/17 01:00 16 94 03/02/17 00:00 16 95 03/01/17 23:48 37.2 76 16 119/75 94 Room Air 03/01/17 23:35 Room Air 03/01/17 23:00 17 94 03/01/17 22:00 16 93 03/01/17 21:00 16 94 03/01/17 20:18 36.9 67 18 144/81 96 Nasal Cannula 2.0 Notes Mental Status: alert / awake / arousable, participated in evaluation Pt Amnestic to Procedure: Yes Nausea / Vomiting: adequately controlled Pain: adequately controlled Airway Patency, RR, SpO2: stable & adequate BP & HR: stable & adequate Hydration State: stable & adequate Neuraxial Anesthesia: sensory block resolved Anesthetic Complications: no major complications apparent
[2017-03-02] MEDS: FERROUS GLUCONATE 324 MG TAB PO SCH ×3 (08:25→17:38)
[2017-03-02] MEDS: POLYETHYLENE (MIRALAX) 17 GM PACK PO SCH ×2 (08:26→20:40)
[2017-03-02] MEDS: DOCUSATE SODIUM 100 MG CAP PO SCH ×2 (08:26→20:41)
[2017-03-02] MEDS: HYDROCHLOROTHIAZIDE 25 MG TAB PO SCH (08:26)
[2017-03-02] MEDS: SPIRONOLACTONE 25 MG TAB PO SCH (08:27)
[2017-03-02] MEDS: NYSTATIN POWDER 15GM BTL EXT SCH ×3 (08:27→20:41)
[2017-03-02] MEDS: MULTIVITAMIN TAB PO SCH (08:28)
[2017-03-02] MEDS: ASPIRIN 325 MG ECTAB PO SCH ×2 (08:28→20:41)
[2017-03-02] MEDS: TRAMADOL HCL 50 MG TAB PO PRN (11:01)
--- NOTE | 2017-03-02 12:18 | Progress Note ---
Subjective Date of Service: Mar 02, 2017. (Titi Perez MD) Subjective Pt evaluation today including: conversation w/ patient, physical exam, chart review, lab review, review of studies, review of inpatient medication list Pain: denies pain PO Intake: adequate Voiding: no voiding problems No acute events. Patient reports feeling better in general. Currently denies pain at rest but pain elicited when attempting to walk with walker. She reports positive flatus, no Bowel movement since procedure. She denies Chest Pain,SOB, calf tenderness. fevers, chills, N/V. (Titi Perez MD) Review of Systems Constitutional: No chills, No fever, No weakness ( ) Respiratory: No cough, No shortness of breath Cardiac: No chest pain, No palpitations Abdomen: No constipation, No nausea, No pain, No vomiting Musculoskeletal: + joint pain (post-operative pain, Left Hip, worse with walking) Female : No dysuria, No hematuria, No urinary frequency (Titi Perez MD) Medications Current Inpatient Medications Medications (Trade) Dose Ordered Sig/Jon Route Start Time Stop Time Status Last Admin Dose Admin Miscellaneous (Remove Transderm-Scop Patch) 1 ea Q72H N/A 03/04/17 06:00 03/04/17 06:01 Miscellaneous Information (Check Scopolamine Patch Placement) 1 ea QS N/A 03/01/17 16:00 03/04/17 05:59 03/02/17 07:32 1 EA Morphine Sulfate (Duramorph Pf Inj) TODAY PRN EPI 03/01/17 08:15 Ketorolac Tromethamine (Toradol Inj) 15 mg Q6H IV. 03/02/17 06:00 03/04/17 00:01 03/02/17 12:01 15 MG Acetaminophen (Tylenol Tab) 1,000 mg Q8H PO 03/01/17 14:00 03/31/17 13:59 03/02/17 06:25 1,000 MG Magnesium Hydroxide (Milk Of Magnesia Susp) 30 ml Q6H PRN PO 03/01/17 09:00 03/31/17 08:59 Bisacodyl (Dulcolax Supp) 10 mg DAILY PRN NM 03/01/17 09:00 03/31/17 08:59 Docusate Sodium (coLACE CAP) 100 mg BID PO 03/01/17 21:00 03/31/17 20:59 03/02/17 08:26 100 MG Al Hydrox/Mg Hydrox/Simethicone (Maalox Max Susp) 15 ml Q4H PRN PO 03/01/17 09:00 03/31/17 08:59 Zolpidem Tartrate (Ambien Tab) 5 mg HSZ PRN PO 03/02/17 01:00 04/01/17 00:59 Multivitamins (Multivitamin Tab) 1 tab QAM PO 03/02/17 09:00 04/01/17 08:59 03/02/17 08:28 1 TAB Ondansetron HCl (Zofran Inj) 4 mg Q6H PRN IV 03/02/17 01:00 04/01/17 00:59 Metoclopramide HCl (Reglan Inj) 10 mg Q6H PRN IV 03/02/17 01:00 04/01/17 00:59 Ferrous Gluconate (Ferrous Gluconate Tab) 324 mg TIDM PO 03/01/17 12:00 03/31/17 11:59 03/02/17 08:25 324 MG Silver Sulfadiazine (Silvadene 1% Crm 50GM Jar) 1 appln BID PRN EXT 03/01/17 09:00 03/31/17 08:59 Aspirin (Ecotrin Tab) 325 mg BID PO 03/01/17 21:00 03/31/17 20:59 03/02/17 08:28 325 MG Tramadol HCl (Ultram Tab) 1 TABLET FOR PAIN RATING... Q4H PRN PO 03/02/17 01:00 04/01/17 00:59 03/02/17 11:01 100 MG Cholecalciferol (Vitamin D Tab) 4,000 inter.unit QPM PO 03/01/17 21:00 03/31/17 20:59 Lamotrigine (Lamictal Tab) 200 mg QAM PO 03/02/17 09:00 04/01/17 08:59 03/02/17 08:27 200 MG Simvastatin (Zocor Tab) 10 mg HS PO 03/01/17 21:00 03/31/17 20:59 03/01/17 21:17 10 MG Miscellaneous Information (Order Awaiting Action) 1 ea QS N/A 03/01/17 11:45 03/31/17 11:44 03/02/17 07:37 1 EA Miscellaneous Information (Order Awaiting Action) 1 ea QS N/A 03/01/17 11:45 03/31/17 11:44 03/02/17 07:37 1 EA Pantoprazole Sodium (Protonix Tab) 40 mg HS PO 03/02/17 21:00 04/01/17 20:59 Spironolactone (Aldactone Tab) 25 mg DAILY PO 03/02/17 09:00 04/01/17 08:59 03/02/17 08:27 25 MG Hydromorphone HCl (Dilaudid Inj) 0.5 mg Q1H PRN IV 03/02/17 01:00 03/16/17 00:59 Polyethylene (Miralax Powder Packet) 17 gm BID PO 03/01/17 21:00 03/31/17 20:59 03/02/17 08:26 17 GM Nystatin (Mycostatin Powder) 1 appln TID EXT 03/01/17 14:00 03/31/17 13:59 03/02/17 08:27 1 APPLN Hydrochlorothiazide (Hydrochlorothiazide Tab) 25 mg DAILY PO 03/02/17 09:00 04/01/17 08:59 03/02/17 08:26 25 MG (Titi Perez MD) Objective Vital Signs Date Time Temp Pulse Resp B/P Pulse Ox O2 Delivery O2 Flow Rate FiO2 03/02/17 07:30 Room Air 03/02/17 06:49 37.0 75 19 128/77 95 Room Air 03/02/17 03:33 36.7 81 16 134/75 93 Room Air 03/02/17 01:00 16 94 03/02/17 00:00 16 95 03/01/17 23:48 37.2 76 16 119/75 94 Room Air 03/01/17 23:35 Room Air 03/01/17 23:00 17 94 03/01/17 22:00 16 93 03/01/17 21:00 16 94 03/01/17 20:18 36.9 67 18 144/81 96 Nasal Cannula 2.0 03/01/17 20:00 16 97 03/01/17 19:00 16 98 03/01/17 18:00 16 100 03/01/17 17:00 16 95 03/01/17 16:00 16 97 03/01/17 15:30 Nasal Cannula 2.0 03/01/17 15:07 36.4 66 18 148/81 97 Nasal Cannula 2.0 03/01/17 15:00 16 98 03/01/17 14:00 16 97 03/01/17 12:52 36.5 64 18 131/77 98 Room Air (Titi Perze MD) Physical Exam General Appearance: WD/WN, no apparent distress, + obese Eyes: normal inspection, PERRL, EOMI Neck: supple, no adenopathy, trachea midline Respiratory/Chest: lungs clear, normal breath sounds, no respiratory distress Cardiovascular: regular rate, rhythm, no murmur Abdomen: normal bowel sounds, non tender, soft Extremities: no pedal edema, no calf tenderness, + pertinent finding ( tenderness at Left Hip) Neurologic/Psychiatric: alert, normal mood/affect, oriented x 3 Skin: normal color, warm/dry (Titi Perez MD) Laboratory Results Last 24 Hours Test 03/02/17 05:40 White Blood Count 12.66 K/uL Red Blood Count 4.24 M/uL Hemoglobin 13.4 g/dL Hematocrit 40.3 % Mean Corpuscular Volume 95.0 fL Mean Corpuscular Hemoglobin 31.6 pg Mean Corpuscular Hemoglobin Concent 33.3 g/dl Platelet Count 191 K/uL Mean Platelet Volume 11.4 fL Neutrophils (%) (Auto) 84.8 % Lymphocytes (%) (Auto) 5.5 % Monocytes (%) (Auto) 8.7 % Eosinophils (%) (Auto) 0.5 % Basophils (%) (Auto) 0.1 % Neutrophils # (Auto) 10.74 K/uL Lymphocytes # (Auto) 0.70 K/uL Monocytes # (Auto) 1.10 K/uL Eosinophils # (Auto) 0.06 K/uL Basophils # (Auto) 0.01 K/uL RDW Standard Deviation 48.0 fL RDW Coefficient of Variation 14.0 % Immature Granulocyte % (Auto) 0.4 % Immature Granulocyte # (Auto) 0.05 K/uL Sodium Level 139 mmol/L Potassium Level 4.2 mmol/L Chloride Level 104 mmol/L Carbon Dioxide Level 29 mmol/L Anion Gap 6.0 mmol/L Blood Urea Nitrogen 19 mg/dl Creatinine 1.10 mg/dl Est Creatinine Clear Calc Drug Dose 58.3 ml/min Estimated GFR () 58.1 Estimated GFR (Non- 50.1 BUN/Creatinine Ratio 16.9 Random Glucose 120 mg/dl Calcium Level 8.7 mg/dl Hepatitis C Antibody Screen NEG (Titi Perez MD) Assessment and Plan 72yo female with HTN, GERD, bipolar disorder, and untreated PEDRO DJD s/p Total Left Hip Replacement POD #1 S/p Left Total Hip Replacement - plan per Orthopedic sx - Continue Pain management, IV fluids Intertrigo rash - nystatin powder TID. Constipation - miralax BID. HTN -controlled - Continue aldactone/HCTZ GERD - PPI. untreated but sleep-study confirmed PEDRO - no signs/symptoms of hypercarbia CKD stage 3 Cr improved, 1.5-->1.1 -F/u AM BMP Bipolar disorder -controlled - continue lamictal. hyperlipidemia - zocor. Disposition -Home with Home health Continued [facility] stay due to: inadequate oral pain control, ambulation difficulties Discharge planning: home with home health (Titi Perez MD) Resident Physician Supervision Note: I interviewed and examined the patient. Discussed with Dr. Perez and agree with findings and plan as documented in the note. Any exceptions or clarifications are listed here: 72-year-old female whom I know from the outpatient service is now status post day 1 of hip replacement. When I spoke with her this afternoon she was feeling actually pretty well; her pain seems adequately controlled. For a medicine perspective, her blood pressure is controlled. Preoperatively - including during the preop visit in our clinic - she was noted to have a slightly elevated creatinine. I spoke about this with the patient today - this likely secondary to her diuretic therapy for her hypertension. Since her blood pressure is well controlled, no changes intubated this point. However when I see her in the office we will likely discuss changing her antihypertensives. However, for now, she is going on a current regimen. Documented By: Pedro Moss (Pedro Moss,D.O.) Resident Tracking Resident Involvement: Resident Care Provided Care Provided: Adult Hospital Medicine (Titi Perez MD)
[2017-03-02] MEDS: CHOLECALCIFEROL 1000 INTER.UNIT TAB PO SCH (17:38)
[2017-03-02] MEDS: SIMVASTATIN 10 MG TAB PO SCH (20:41)
[2017-03-02] MEDS: CycloSPORINE 0.05% 0.4 ML 30 UDV/BOX OP SCH (20:41)
[2017-03-02] MEDS ORDERED: PANTOprazole SOD 40 MG TAB PO SCH (21:00)
[2017-03-02] MEDS ORDERED: ASPEC325 PO (21:47)
[2017-03-02] MEDS ORDERED: ACET-1138 PO (21:47)
[2017-03-02] MEDS ORDERED: ULT50X PO (21:47)
--- NOTE | 2017-03-02 21:50 | Discharge Instructions ---
Discharge Instructions Date of Service Mar 02, 2017. Admission Reason for Admission: Left Hip Pain, Osteoarthritis Discharge Discharge Diagnosis / Problem: Left Hip Replacement Discharge Goals Goal(s): Decrease discomfort, Improve function, Increase independence, Improve disease control, Therapeutic intervention Activity Recommendations Activity Limitations: per Instructions/Follow-up section Weightbearing Status: Left weightbearing . Instructions / Follow-Up Instructions / Follow-Up ACTIVITY RECOMMENDATIONS: Physical Therapy: * Aggressive physical therapy is not usually needed. You will learn to take care of yourself safely and walk. * Follow the "Hip Precautions Instructions." * In some cases, the aids social worker at the hospital will arrange to have a therapist come to your house for the first couple of weeks to help you learn these skills. * You need to practice on your own or with the help of a family member as needed. * When you learn these skills, most of the therapy can be done on your own. Home Exercise: * You were shown a series of exercises in the hospital. Do these exercises three to four times each day including the exercises you were shown in physical therapy. Walking: * Get up and walk several times each day. For the first four weeks, try not to stand or walk for more than one hour at a time. If you do stand or walk for more than one hour, you will not hurt anything, but your leg will likely swell. * As you feel comfortable, you may change from the walker or crutches to a cane and then to independent walking. MEDICATIONS: New Medicine: * You will likely be taking one or more of these medicines: 1. Tramadol - Take, as directed, when you need it, every four to six hours to control your pain. 2. Aspirin - Thins your blood to lessen the chance of forming a blood clot. * The most common side effects of pain medicine and iron are nausea and constipation. If nausea or constipation is too much of a problem or if you have any questions about your new medicines or doses, call [facility] at . We will try to help you manage these issues. VERY IMPORTANT TO READ AND REVIEW" Pain: * The immediate post-operative period after hip replacement surgery is often quite painful. * You are given a prescription for pain medicine. You should take it, as directed, when you need it, especially before physical therapy and before going to bed. Pain that interferes with sleep is very common and can last several months. * You will likely need pain medicine for the first two to four weeks. It will not stop all of the pain. The pain will lessen and as you feel better, you may change to milder pain medicine such as Tylenol. * The most common side effects of pain medicine are nausea and constipation, so don't take more than you need. SPECIAL CARE INSTRUCTIONS: TEDs/Elastic Stockings: * The white elastic stockings help limit swelling and prevent blood clots from forming in your legs. The more you wear them, the more they work. * Wear them for six weeks. Prevention of Infection: * Take antibiotics one hour before any dental cleaning, dental work, urological procedure, gastrointestinal procedure or any invasive surgery in order to prevent your new joint from getting infected. * You may get the antibiotics from the doctor performing the procedure or you may call our office at before and we will call in a prescription to the pharmacy of your choice. Things to Watch For: * Drainage from the incision site that occurs more than one week after your surgery. * Severely increased leg pain or swelling. * Increased redness at the incision site. * Fever above 102 degrees Fahrenheit. * Unusual chest pain or shortness of breath. * Unusual pain or burning with urination. Call [facility] at with any of the above problems or if you have any questions about your medicines or recovery. FOLLOW UP VISIT: Make an appointment to see your doctor for approximately two weeks after surgery for a progress check and staple removal by calling the office at . Current Hospital Diet Patient's current hospital diet: Regular Diet Discharge Diet Recommended Diet: Regular Diet Procedures Procedures Performed: Left Total Hip Arthroplasty, Uncemented Pending Studies Studies pending at discharge: no Medical Emergencies . Who to Call and When: Medical Emergencies: If at any time you feel your situation is an emergency, please call [phone] immediately. . Non-Emergent Contact Non-Emergency issues call your: Surgeon . "Provider Documentation" section prepared by Tanmay Alexandre. . VTE Core Measure Inpt VTE Proph given/why not?: Other Anticoagulation, T.E.D. Stockings, SCD's
[2017-03-03] MEDS: ACETAMINOPHEN 500 MG TAB PO SCH ×2 (05:36→13:53)
[2017-03-03] MEDS: KETOROLAC TROMETHAMINE 15 MG/ML VIAL IV. SCH ×2 (05:37→12:51)
[2017-03-03 07:42] VITALS: BP 139/79; PULSE 71; TEMP 37; O2SAT 94
[2017-03-03] MEDS: RESTASIS~ORDER AWAITING ACTION SCH ×2 (08:00)
[2017-03-03] MEDS: CLARINEX~ORDER AWAITING ACTION SCH ×2 (08:00)
[2017-03-03] MEDS: CHECK SCOPOLAMINE PATCH PLACEMENT SCH (08:15)
--- NOTE | 2017-03-03 08:50 | PROGRESS NOTE ---
DATE: 03/03/2017 SUBJECTIVE: A 72-year-old white female postop day 2 from left hip replacement. She is doing pretty well. Pain is controlled. Therapy has gone reasonably well. She is anxious to go home. OBJECTIVE: VITAL SIGNS: Temperature 37.0. Vital signs stable. PHYSICAL EXAMINATION: GENERAL: Reveals a pleasant elderly female. She is sitting up in her bedside chair reading this morning. She looks pretty comfortable. EXTREMITIES: Examination of the left hip reveals the dressing to be clean, dry and intact. Hip is located. She can dorsiflex and plantarflex her foot appropriately. She is neurologically intact. ASSESSMENT: A 72-year-old white female postop day 2 from a left total hip replacement, doing pretty well. PLAN: 1. DVT prophylaxis including thigh-high TEDs, SCDs, and aspirin twice a day. 2. PT/OT. Weightbearing as tolerated. Left total hip protocol. 3. Pain control, doing pretty well with current pain regimen. 4. Disposition: Plan to discharge to home with some home health later today.
[2017-03-03] MEDS ORDERED: DESLORATADINE 5 MG TAB PO SCH (09:00)
[2017-03-03] MEDS: FERROUS GLUCONATE 324 MG TAB PO SCH ×2 (09:36→12:54)
[2017-03-03] MEDS: NYSTATIN POWDER 15GM BTL EXT SCH ×2 (09:37→13:49)
[2017-03-03] MEDS: CycloSPORINE 0.05% 0.4 ML 30 UDV/BOX OP SCH (09:37)
[2017-03-03] MEDS: SPIRONOLACTONE 25 MG TAB PO SCH (09:38)
[2017-03-03] MEDS: ASPIRIN 325 MG ECTAB PO SCH (09:39)
[2017-03-03] MEDS: DOCUSATE SODIUM 100 MG CAP PO SCH (09:39)
[2017-03-03] MEDS: POLYETHYLENE (MIRALAX) 17 GM PACK PO SCH (09:40)
[2017-03-03] MEDS: HYDROCHLOROTHIAZIDE 25 MG TAB PO SCH (09:40)
[2017-03-03] MEDS: MULTIVITAMIN TAB PO SCH (09:41)
[2017-03-03] MEDS: TRAMADOL HCL 50 MG TAB PO PRN (09:48)
--- NOTE | 2017-03-03 10:18 | Family Medicine Progress Note ---
Progress Note Date of Service Mar 03, 2017. Subjective Pt evaluation today including: conversation w/ patient, physical exam, chart review, conversation w/ business continuity consultant, review of inpatient medication list Pain: 02/12 PO Intake: good Voiding: no voiding problems Patient with no acute events overnight Patient has been able to ambulate to the washroom and chair without any difficulty. She denies any worsening hip pain, redness or discharge around the incision site. She denies any fevers, night sweats, chills, leg numbness/tingling, chest pain, shortness of breath or palpitations She is passing gas but has not had a bowel movement yet Additional Comments: Please check notes for ROS Medications Current Inpatient Medications Medications (Trade) Dose Ordered Sig/Jon Route Start Time Stop Time Status Last Admin Dose Admin Miscellaneous (Remove Transderm-Scop Patch) 1 ea Q72H N/A 03/04/17 06:00 03/04/17 06:01 Miscellaneous Information (Check Scopolamine Patch Placement) 1 ea QS N/A 03/01/17 16:00 03/04/17 05:59 03/03/17 08:15 1 EA Morphine Sulfate (Duramorph Pf Inj) TODAY PRN EPI 03/01/17 08:15 Ketorolac Tromethamine (Toradol Inj) 15 mg Q6H IV. 03/02/17 06:00 03/04/17 00:01 03/03/17 05:37 15 MG Acetaminophen (Tylenol Tab) 1,000 mg Q8H PO 03/01/17 14:00 03/31/17 13:59 03/03/17 05:36 1,000 MG Magnesium Hydroxide (Milk Of Magnesia Susp) 30 ml Q6H PRN PO 03/01/17 09:00 03/31/17 08:59 Bisacodyl (Dulcolax Supp) 10 mg DAILY PRN NM 03/01/17 09:00 03/31/17 08:59 Docusate Sodium (coLACE CAP) 100 mg BID PO 03/01/17 21:00 03/31/17 20:59 03/03/17 09:39 100 MG Al Hydrox/Mg Hydrox/Simethicone (Maalox Max Susp) 15 ml Q4H PRN PO 03/01/17 09:00 03/31/17 08:59 Zolpidem Tartrate (Ambien Tab) 5 mg HSZ PRN PO 03/02/17 01:00 04/01/17 00:59 Multivitamins (Multivitamin Tab) 1 tab QAM PO 03/02/17 09:00 04/01/17 08:59 03/03/17 09:41 1 TAB Ondansetron HCl (Zofran Inj) 4 mg Q6H PRN IV 03/02/17 01:00 04/01/17 00:59 Metoclopramide HCl (Reglan Inj) 10 mg Q6H PRN IV 03/02/17 01:00 04/01/17 00:59 Ferrous Gluconate (Ferrous Gluconate Tab) 324 mg TIDM PO 03/01/17 12:00 03/31/17 11:59 03/03/17 12:54 324 MG Silver Sulfadiazine (Silvadene 1% Crm 50GM Jar) 1 appln BID PRN EXT 03/01/17 09:00 03/31/17 08:59 Aspirin (Ecotrin Tab) 325 mg BID PO 03/01/17 21:00 03/31/17 20:59 03/03/17 09:39 325 MG Tramadol HCl (Ultram Tab) 1 TABLET FOR PAIN RATING... Q4H PRN PO 03/02/17 01:00 04/01/17 00:59 03/03/17 09:48 100 MG Cholecalciferol (Vitamin D Tab) 4,000 inter.unit QPM PO 03/01/17 21:00 03/31/17 20:59 03/02/17 17:38 4,000 INTER.UNIT Lamotrigine (Lamictal Tab) 200 mg QAM PO 03/02/17 09:00 04/01/17 08:59 03/03/17 09:40 200 MG Simvastatin (Zocor Tab) 10 mg HS PO 03/01/17 21:00 03/31/17 20:59 03/02/17 20:41 10 MG Miscellaneous Information (Order Awaiting Action) 1 ea QS N/A 03/01/17 11:45 03/31/17 11:44 03/02/17 07:37 1 EA Miscellaneous Information (Order Awaiting Action) 1 ea QS N/A 03/01/17 11:45 03/31/17 11:44 03/02/17 07:37 1 EA Pantoprazole Sodium (Protonix Tab) 40 mg HS PO 03/02/17 21:00 04/01/17 20:59 03/02/17 17:38 40 MG Spironolactone (Aldactone Tab) 25 mg DAILY PO 03/02/17 09:00 04/01/17 08:59 03/03/17 09:38 25 MG Hydromorphone HCl (Dilaudid Inj) 0.5 mg Q1H PRN IV 03/02/17 01:00 03/16/17 00:59 Polyethylene (Miralax Powder Packet) 17 gm BID PO 03/01/17 21:00 03/31/17 20:59 03/03/17 09:40 17 GM Nystatin (Mycostatin Powder) 1 appln TID EXT 03/01/17 14:00 03/31/17 13:59 03/03/17 09:37 1 APPLN Hydrochlorothiazide (Hydrochlorothiazide Tab) 25 mg DAILY PO 03/02/17 09:00 04/01/17 08:59 03/03/17 09:40 25 MG Desloratidine (Clarinex) 5 mg DAILY PO 03/03/17 09:00 04/02/17 08:59 03/03/17 09:39 5 MG Cyclosporine (Restasis) 1 drops BID OP 03/02/17 21:00 04/01/17 20:59 03/03/17 09:37 1 DROPS Objective Vital Signs Date Time Temp Pulse Resp B/P Pulse Ox O2 Delivery O2 Flow Rate FiO2 03/03/17 11:35 37.0 71 20 94 Room Air 03/03/17 08:00 Room Air 03/03/17 07:42 37.0 71 20 139/79 94 Room Air 03/02/17 23:35 36.8 58 16 134/82 96 Room Air 03/02/17 23:30 Room Air 03/02/17 16:37 37.0 64 18 126/76 95 Room Air 03/02/17 16:00 Room Air Physical Exam General Appearance: WD/WN, no apparent distress, + obese Respiratory/Chest: lungs clear, normal breath sounds, no accessory muscle use Cardiovascular: regular rate, rhythm, no edema, no murmur Abdomen: normal bowel sounds, non tender, soft Extremities: no pedal edema, normal capillary refill, + calf tenderness (mild left calf tenderness), + pertinent finding (mildly tender around incision site to palpation, well healed and without erythema or discharge) Neurologic/Psychiatric: alert, normal mood/affect, oriented x 3 Skin: normal color, warm/dry, no rash Assessment and Plan 72yo female with HTN, GERD, bipolar disorder, and untreated PEDRO DJD s/p Total Left Hip Replacement POD #1 Hip Replacement - Plan per ortho - Continue pain management - PT before she leaves hospital Left Calf tenderness - Going to get US to assess for DVT Intertrigo rash - nystatin powder tid Constipation - miralax BID. HTN - Continue aldactone/HCTZ GERD - PPI CKD Stage 3 - Cr 1.1 - Monitor Bipolar - continue lamictal. Hyperlipidemia - continue zocor Dispo - d/c pending ultrasound result - home with home health Discharge planning: home with home health History Resident Physician Supervision Note: I was present with Dr. Lima during the history and exam. I discussed the case with the resident and agree with the findings and plan as documented in the note. Any exceptions or clarifications are listed here. Pt reports ambulating with pain of the left hip but tolerating activity. No complaints of discomfort in the extremity beyond baseline. Reports no fever, swelling, rashes/ skin changes, paresthesias, TRAN, CP/SOB, palpitations, lightheadedness General Appearance: WD/WN, no apparent distress Neck: non-tender, full range of motion Respiratory: chest non-tender, lungs clear, normal breath sounds, no respiratory distress Cardiovascular: normal peripheral pulses, regular rate, rhythm, no edema, no murmur Gastrointestinal: normal bowel sounds, non tender, soft, no organomegaly Extremities: other (left medial calf pain which tracks proximally from superior to the ankle) Assessment/Plan 72 y/o female h/o HTN, GERD, bipolar, PEDRO POD #1 from [facility] Hip Replacement - management per primary team Left Calf tenderness - venous doppler WNL, h/o previous MSK injury to that extremity. Pain control and PT Intertrigo rash - nystatin powder tid Constipation - miralax BID. HTN - continue aldactone/HCTZ GERD - PPI therapy CKD Stage 3 - Cr 1.1, would repeat BMP as outpatient in 2-3 days Bipolar - continue lamictal. Hyperlipidemia - continue zocor
[2017-03-03 11:35] VITALS: BP 139/79; PULSE 71; TEMP 37; O2SAT 94
--- NOTE | 2017-03-03 12:57 | Discharge Instructions ---
Discharge Instructions Date of Service Mar 03, 2017. Admission Reason for Admission: Left Hip Pain, Osteoarthritis Discharge Discharge Diagnosis / Problem: Left Hip replacement Discharge Goals Goal(s): Decrease discomfort, Improve function, Increase independence, Therapeutic intervention, Prevent Disease Progression Activity Recommendations Activity Limitations: per Instructions/Follow-up section . Instructions / Follow-Up Instructions / Follow-Up ACTIVITY RECOMMENDATIONS: SELF CARE INSTRUCTIONS AFTER TOTAL HIP REPLACEMENT Until the incision and soft tissues around your hip have healed, there is a possibility that the hip prosthesis could dislocate. A. Observe the following precautions to prevent dislocation: 1. Don't bend your hip greater than 90 degrees. 2. Avoid crossing your legs or ankles while standing or lying. 3. Sit with your feet placed 6 inches apart. 4. When sitting, keep your knees below your hips. Sit on a firm surface, avoid deep, soft chairs and couches. Use an elevated toilet seat in the bathroom. 5. Don't bend over at the waist. Use a long handled shoehorn and a sock aid to help you put on your shoes and socks. A entry level civil engineer can help you car pick up driver objects that are too high or too low to reach. 6. Keep car riding to a minimum for at least one month after surgery. B. Your balance may be shaky for a while. Use crutches or a walker until directed by your doctor. C. Use hand rails when walking on stairs. D. Wear low heeled shoes with non-slip soles. E. Be sure that your floors are free of things that could trip you - throw rugs , electrical cords, small objects. Avoid wet and waxed floors, especially with crutches and canes. F. Try to walk several times a day with rest periods between. G. Continue with all the exercises taught to you in the hospital. Again, make walking a part of your daily routine. SPECIAL CARE INSTRUCTIONS: VERY IMPORTANT TO READ AND REVIEW A. You may still be at risk for phlebitis and blood clots. 1. Wear surgical stockings (BRENT hose) for one month after surgery to improve circulation and reduce swelling. 2. Take Coumadin, Lovenox (blood thinning medication) or Aspirin, as directed by your doctor. 3. If taking Coumadin, have a pro-time (blood test) drawn according to your doctor's instructions. 4. If you are on Coumadin normally, your family doctor/college dean should monitor your blood work. Expect a phone call the day of or the day after bloodwork is drawn to adjust your dosage. B. You must take antibiotics before having dental work, bladder, bowel and other surgery. Your doctor will provide you with a permanent card to carry describing precautions. C. Call [facility] if you have a fever, redness or swelling around the incision, cloudy drainage from incision, or sudden increase in pain in your hip, not relieved by your regular pain medication. D. Please call the office at if you have any concerns or questions about your operation or recovery. * WEAR BRENT HOSE 20 HOURS PER DAY FOR 4 WEEKS. * YOU SHOULD USE A WALKER OR CRUTCHES FOR 2-4 WEEKS. THIS WILL HELP PREVENT STRAIN ON YOUR HIP MUSCLE AND ALLOW IT TO HEAL PROPERLY. YOU MAY WEAN TO A CANE TOLERATED. * MOST PATIENTS WILL BE PRESCRIBED LOVENOX INJECTIONS ONCE DAILY FOR 2 WEEKS. ONCE YOU HAVE FINISHED THESE INJECTIONS, START TAKING ASPIRIN, 325 MG, TWICE DAILY FOR 2 MORE WEEKS. THIS IS YOUR BLOOD THINNER. * MOST PATIENTS WILL HAVE HOME NURSING FOR THERAPY & SUTURE REMOVAL. SUTURES SHOULD BE REMOVED 10-14 DAYS POST-OP. IF YOU DO NOT HAVE HOME NURSING PLEASE CALL TO SCHEDULE AN APPOINTMENT IF NOT PREVIOUSLY ARRANGED. [phone] FOLLOW UP VISIT: If appointment is not already scheduled: Please call [facility] to make a follow-up appointment for one month after your surgery at . Current Hospital Diet Patient's current hospital diet: Regular Diet Discharge Diet Recommended Diet: AHA Diet (Heart Healthy) Procedures Procedures Performed: Left Total Hip Arthroplasty, Uncemented Pending Studies Studies pending at discharge: no Medical Emergencies . Who to Call and When: Medical Emergencies: If at any time you feel your situation is an emergency, please call [phone] immediately. . Non-Emergent Contact Non-Emergency issues call your: Primary Care Provider, Surgeon . . "Provider Documentation" section prepared by Paulo Lima. . VTE Core Measure Inpt VTE Proph given/why not?: Other Anticoagulation, T.E.D. Stockings, SCD's
--- NOTE | 2017-03-03 13:44 | DIAGNOSTIC IMAGING REPORT ---
LEFT LOWER EXTREMITY VENOUS DOPPLER HISTORY: Left calf pain COMPARISON STUDY: None. FINDINGS: There is normal compressibility, flow, and augmentation within the left lower extremity deep venous system. IMPRESSION: No DVT within the left lower extremity. Electronically signed by: Blair Keller M.D. 03/03/2017 1:43 PM Dictated Date/Time: 03/03/2017 1:43 PM
--- NOTE | 2017-03-07 15:29 | DISCHARGE SUMMARY ---
ADMITTING PHYSICIAN AND SURGEON: Dr. Alexandre. ADMITTING DIAGNOSIS: Left hip degenerative joint disease. SURGERY PERFORMED: Left total hip arthroplasty. SECONDARY DIAGNOSES: Hypertension, elevated cholesterol, sleep apnea, bipolar disorder, gastroesophageal reflux disease, obesity, breast cancer. CONSULTS: Dr. Short postoperative medical management. HISTORY AND PHYSICAL EXAMINATION: Well documented in the patient's chart. HOSPITAL COURSE: The patient was admitted on 03/01/2017 underwent total hip arthroplasty, tolerated the procedure well. There were no complications. She was transferred to the PACU postoperatively and later to the orthopedic floor for further care. She was given Ancef for antibiotic prophylaxis, BRENT stockings, SCDs and aspirin for DVT prophylaxis. Hemoglobin, hematocrit and vital signs were monitored during her hospital stay and remained stable. She did not require any blood transfusions. There were no complications. By postoperative day 2, she was tolerating a general diet, pain was controlled with oral pain medicine. She was participating in physical therapy and had no signs of DVT. She did have an ultrasound done of her lower extremity which showed no DVT within her left lower extremity. On postop day 2, she was discharged home and set up with home health services. She was given printed discharge instructions including prescriptions for Extra-Strength Tylenol, aspirin 325 mg b.i.d. and tramadol. Continue her home medications with the exception of Tylenol and aspirin doses which were changed. Continue physical therapy, weightbearing as tolerated, BRENT stockings, total hip precautions. Follow up in 10-12 days or sooner if there are any problems or concerns.
== END 2017-03-03 14:56 | disposition home health service (06) | DRG 470 ==
LOC: ENRESERV → ENRESERVTM → ENRESERVDT → C.ACU 05:20 → C.3E 06:40
PROVIDERS: ADMIT Orthopaedic Surgery Sports Medicine; ATTEND Orthopaedic Surgery Sports Medicine
PROC: 0SRB02A Replacement of Left Hip Joint with Metal on Polyethylene Synthetic Substitute, Uncemented, Open Approach (ICD-10-PCS; principal; 2017-03-01 07:30)
DX: M16.12 Unilateral primary osteoarthritis, left hip (principal); Z68.41 Body mass index [BMI] 40.0-44.9, adult; E78.00 Pure hypercholesterolemia, unspecified; K21.9 Gastro-esophageal reflux disease without esophagitis; E66.9 Obesity, unspecified; F31.9 Bipolar disorder, unspecified; L30.4 Erythema intertrigo; G47.30 Sleep apnea, unspecified; N18.3 Chronic kidney disease, stage 3 (moderate); I12.9 Hypertensive chronic kidney disease with stage 1 through stage 4 chronic kidney disease, or unspecified chronic kidney disease; K59.00 Constipation, unspecified; M79.662 Pain in left lower leg; Z79.82 Long term (current) use of aspirin; Z79.899 Other long term (current) drug therapy; Z85.3 Personal history of malignant neoplasm of breast; Z87.891 Personal history of nicotine dependence

== ENCOUNTER → 2017-10-15 | Outpatient (CLI) | payer OTHER ==
[~2017-10-15] MED LIST changes: +ACET-1138 PO; -ACET1TAB84 PO; +ASPEC325 PO; -ASPI81TA28 PO; +LAMO200T35 PO; -LAMO200T38 PO; +ULT50X PO
[2017-10-15 17:56] LABS: BLOOD UREA NITROGEN 23 mg/dl (7-18); CREATININE 1.25 mg/dl (0.60-1.20)
== END | disposition home or self-care (01) ==
LOC: C.LABBFT 11:00
PROVIDERS: ATTEND Orthopaedic Surgery Sports Medicine
DX: Z01.812 Encounter for preprocedural laboratory examination (principal)

== ENCOUNTER → 2017-12-03 | Outpatient (CLI) | payer OTHER ==
[~2017-12-03] MED LIST changes: +ACET1TAB84 PO; +ASPI81TA28 PO; +CHOL20007 PO; +CLR/5 PO; +CYCL0.052 OP; +NAPR1TAB9 PO; +SALI0.657 NAE; +TRAM-10 PO
== END | disposition home or self-care (01) ==
LOC: C.LAB 09:44
PROVIDERS: ATTEND Psychiatry & Neurology Psychiatry

== ENCOUNTER 2021-05-30 12:16 | Inpatient (IN) ==
[2021-05-30] MEDS ORDERED: LORazepam 1 MG/2 ML VIAL IV STA ×2 (13:05→16:47)
--- NOTE | 2021-05-30 13:13 | Emergency Department Note ---
Impression & Plan Acute confusion, Agitation, Medication reaction, Psychosis ED Provider Note NAME: VINICIUS STEVENSON AGE: 76 SEX: F : 1945 ARRIVES VIA: Ambulance INFORMANT: [Patient][, ems] ED PROVIDER(S): [Dannie Noyola MD] CHIEF COMPLAINT: Confusion HISTORY OF PRESENT ILLNESS: The patient is a 76-year-old female who has been confused and somewhat agitated today. She is more confused than her baseline dementia. The patient had an event today that the thinks may have been a seizure. She was sitting on a chair. She had 3 or 4 minutes of shaking. She was lowered to the ground and once the shaking stopped, she slept. She is now awake and more interactive. The patient has not had cough, congestion or fever. She has a history of bipolar disease however, she has been doing well with her psychiatric illness for many years. Her is questioning whether this is a manic phase. The patient is a very poor historian. She cannot really add much to the history. She currently denies any pain. She states he is not sleeping well. Of note, the patient's psychiatrist called the ED. The patient was recently taken off of lithium and placed on Lamictal. She has not done well since and the psychiatrist believes that her current mental issues may be result of her medication change. Given her mental state, no further history obtainable. REVIEW OF SYSTEMS: Unobtainable given her mental state. PMHx/PSHx: See Below SOCIAL HISTORY: See Below. PHYSICAL EXAM: GENERAL: Patient is in no acute distress. Agitated. Somewhat anxious. HEENT: No acute trauma, normocephalic atraumatic, mucous membranes dry, no nasal congestion, no scleral icterus. Pupils equal and reactive to light. NECK: No stridor, no adenopathy, no meningismus, trachea is midline. LUNGS: Clear to auscultation bilaterally, no wheeze, no rhonchi, breath sounds equal. HEART: Without murmurs gallops or rubs, regular rate and rhythm. ABDOMEN: Soft, nontender, bowel sounds positive, no hernias, no peritonitis. EXTREMITIES: No cyanosis or edema, full range of motion of all the joints without pain or difficulty, no signs for acute trauma. NEUROLOGIC: Awake. Seems confused, no speech slur. Moves all extremities. SKIN: No rash, no jaundice, no diaphoresis. Psychiatric: Agitated, seems somewhat anxious. DIFFERENTIAL DIAGNOSIS: Infection, dehydration, metabolic abnormality, hypo/hyperglycemia, UTI, seizure, psychosis, medication reaction, electrolyte disturbance, anemia, hypoxia, cardiac sources, intracerebral event, toxicologic issues, stroke, TIA, as well as other pathologies. EMERGENCY DEPARTMENT COURSE/PROCEDURES: ECG: Indication was weakness. The ECG shows a sinus rhythm with a first- degree AV block. PVCs are present. PACs are present. The rate is 80. There is no ST elevation, there is some nonspecific ST change. QTC is 477. Continuous Cardiac Monitoring: An order was placed for continuous cardiac monitoring. The monitor shows a rate of 90 with sinus rhythm with a first- degree AV block. Critical Care Note: I have personally spent 47 minutes of critical care time in the direct management of this patient. This includes bedside care, interpretation of diagnostic studies, and testing, discussion with consultants, patient, and family members, and other required patient management activities. This 47 minutes is in excess of all separately billable procedures. MEDICAL DECISION MAKING: There is a mild leukocytosis which could be consistent with infection or the stress of her presentation. No anemia. There is a normal platelet count. Creatinine is slightly elevated at 1.45, she has a history of mild renal insufficiency. No significant electrolyte abnormality in need of emergent correction. No worrisome liver enzyme elevation. Patient appears to be in a euthyroid state. ECG shows a sinus rhythm with a first-degree AV block. There was no acute ischemia. Cardiac enzyme testing x1 is not consistent with acute cardiac injury. Urinalysis does not show evidence for infection. Aspirin, Tylenol and alcohol levels were undetectable. Urine tox was negative. Covid test did return positive. Chest film does not show pneumonia or focal infiltrate. Brain CT shows no acute bleed or mass-effect. On exam, the patient was agitated and confused. No focal motor deficits. The patient's psychiatrist called in and spoke with our patient case coordinator. The psychiatrist was concerned that her presentation today was related to a medication change. She was recently taken off of lithium and put on Lamictal. The patient received IV Ativan, a second dose of IV Ativan was given. She was given IV saline. At this point, medically, the patient seems to be doing okay. Certainly, her presentation could be related to her recent medication change. I do think a medical admission is warranted. She needs a psychiatry consult as well. I did speak with the patient and case management. I spoke with her . The on- call hospitalist has been consulted. Past Med/Surg History Medical History Anxiety Bipolar disorder ON LAMICTAL Bradycardia CHRONIC Cancer BREAST CA S/P LUMPECTOMY/RADIATION (LAST 2009) CKD (chronic kidney disease) Depression Dry eye syndrome GERD (gastroesophageal reflux disease) CONTROLLED Hyperlipidemia Hypertension Morbid obesity PEDRO (obstructive sleep apnea) NO DEVICE Osteoarthritis Surgical History (System 04/27/20 @ 14:43 by Amairani Garcia) H/O total hip arthroplasty LT History of cholecystectomy History of hysterectomy S/P rotator cuff repair RIGHT SHOULDER ARTHROSCOPY= 12/28/17= GRADE 1 VIEW, MAC#3, ETT 7.5 AT [facility] S/P total knee arthroplasty BL Status post left breast lumpectomy X2 Status post right foot surgery Social History Smoking Status: Never smoker Second Hand Exposure: No; Hx Alcohol Use: No Hx Substance Use: No Preferred Language: Haitian Communication Ability: Effective 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 Beliefs That Will Affect Care: None marital status: Current Living Situation: Spouse Feels Safe at Home: Yes Assistive Devices: Walker Allergies Allergies Allergy/AdvReac Type Severity Reaction Status Date / Time carbamazepine Allergy Unknown ITCHY, Verified 04/27/20 14:43 INVOLUNTARY BODY MOVEMENTS grass pollen-perennial rye, Allergy Unknown ITCHY EYES Verified 04/27/20 14:43 standar STUFFY mold Allergy Unknown ITCHY Verified 04/27/20 14:43 EYES, STUFFY ragweed pollen Allergy Unknown ITCHY Verified 04/27/20 14:43 EYES, STUFFY Dust Allergy Unknown ITCHY Uncoded 04/27/20 14:43 EYES, STUFFY [place] Allergy Unknown ITCHY EYES Uncoded 04/27/20 14:43 STUFFY [place] Allergy Unknown ITCHY Uncoded 04/27/20 14:43 EYES, STUFFY Home Meds Home Medications Medication Instructions Recorded Confirmed acetaminophen 650 mg 2 tab PO BID 07/17/18 05/30/21 tablet,extended release (Tylenol Arthritis Pain) aspirin 81 mg tablet,delayed 1 tab PO QAM 07/17/18 05/30/21 release cyclosporine 0.05 % eye drops in a 1 drp OPHTHALMIC (EYE) BID 07/17/18 05/30/21 dropperette (Restasis) desloratadine 5 mg tablet 5 mg PO DAILY 07/17/18 05/30/21 (Clarinex) lamotrigine 200 mg tablet 200 mg PO QAM 07/17/18 05/30/21 (Lamictal) qq-[id number]-vyr-epa-fish oil-vit D3 300 2 cap PO DAILY 07/17/18 05/30/21 mg-1,000 mg-1,000 unit capsule (Fish Oil-Vit D3) omeprazole magnesium 20 mg 40 mg PO QPM 07/17/18 05/30/21 tablet,delayed release (Prilosec OTC) simvastatin 10 mg tablet 10 mg PO HS 07/17/18 05/30/21 sodium chloride 0.65 % nasal spray 1 spray INTRANASAL Q8H PRN 07/17/18 05/30/21 aerosol (Saline Nasal) spironolactone 25 1 tab PO QAM 07/17/18 05/30/21 mg-hydrochlorothiazide 25 mg tablet naproxen sodium 220 mg capsule 220 mg PO Q8 PRN 08/23/18 05/30/21 Results & Data (ED) Vital Signs Vital Signs - 24 hr 05/30/21 12:30 05/30/21 12:39 05/30/21 13:00 Temperature 36.9 C Temperature Source Oral Pulse Rate 83 90 68 Pulse Rate from SpO2 Sensor 82 75 Respiratory Rate 20 18 21 Blood Pressure 158/91 H 175/90 H 176/78 H Blood Pressure Mean 113 118 110 Pulse Oximetry 97 98 98 Oxygen Delivery Method Sepsis Recent Fever Within 48 Hours No Sepsis New/Unexplained Change in Mental Status No Sepsis Action Taken by Nursing No Action Required 05/30/21 13:24 05/30/21 13:30 05/30/21 14:00 Temperature Temperature Source Pulse Rate 85 77 Pulse Rate from SpO2 Sensor 70 73 Respiratory Rate 19 20 Blood Pressure 171/130 H 192/89 H Blood Pressure Mean 143 123 Pulse Oximetry 97 96 98 Oxygen Delivery Method Room Air Sepsis Recent Fever Within 48 Hours Sepsis New/Unexplained Change in Mental Status Sepsis Action Taken by Nursing 05/30/21 14:33 05/30/21 15:00 05/30/21 16:00 Temperature Temperature Source Pulse Rate 80 84 91 H Pulse Rate from SpO2 Sensor 84 90 Respiratory Rate 19 23 17 Blood Pressure 159/106 H Blood Pressure Mean 123 Pulse Oximetry 98 96 Oxygen Delivery Method Sepsis Recent Fever Within 48 Hours Sepsis New/Unexplained Change in Mental Status Sepsis Action Taken by Nursing 05/30/21 16:30 05/30/21 17:00 Temperature Temperature Source Pulse Rate 82 94 H Pulse Rate from SpO2 Sensor Respiratory Rate 23 18 Blood Pressure 145/102 H 157/87 H Blood Pressure Mean 116 110 Pulse Oximetry Oxygen Delivery Method Sepsis Recent Fever Within 48 Hours Sepsis New/Unexplained Change in Mental Status Sepsis Action Taken by Correction Medications Current Medication List: was personally reviewed by me Laboratory Data Attestation: I reviewed the patient's lab results. Result diagrams: 05/30/21 14:26 05/30/21 14:26 Lab Results 05/30/21 05/30/21 05/30/21 Range/Units 13:22 13:22 14:26 WBC (4.8-10.8) K/uL RBC (4.2-5.4) M/uL Hgb (12.0-16.0) g/dL Hct (37-47) % MCV (80-100) fL MCH (25-34) pg MCHC (32-36) g/dL RDW Std Deviation (36.4-46.3) fL RDW Coeff of Darrian (11.5-14.5) % Plt Count (130-400) K/uL MPV (7.4-10.4) fL Immature Gran % (Auto) % Neut % (Auto) % Lymph % (Auto) % [place] % (Auto) % Eos % (Auto) % Baso % (Auto) % Neut # (Auto) (1.4-6.5) K/uL Lymph # (Auto) (1.2-3.4) K/uL [place] # (Auto) (0.11-0.59) K/uL Eos # (Auto) (0-0.5) K/uL Baso # (Auto) (0-0.2) K/uL Immature Gran # (Auto) (0.00-0.02) K/uL Sodium 140 (136-145) mmol/L Potassium 3.9 (3.5-5.1) mmol/L Chloride 109 H (98-107) mmol/L Carbon Dioxide 22 (21-32) mmol/L Anion Gap 9.0 (3-11) BUN 34 H (7-18) mg/dl Creatinine 1.45 H (0.6-1.2) mg/dl Est Cr Clr Drug Dosing 43.2 ml/min Est GFR ( Amer) 40.4 ml/min Est GFR (Non-Af Amer) 34.9 ml/min BUN/Creatinine Ratio 23.1 H (10-20) Glucose 118 H (70-99) mg/dl Calcium 9.8 (8.5-10.1) mg/dl Magnesium 2.0 (1.8-2.4) mg/dl Total Bilirubin 0.8 (0.2-1) mg/dl AST 20 (15-37) U/L ALT 25 (12-78) U/L Alkaline Phosphatase 69 (45-117) U/L Troponin I < 0.015 (0-0.045) ng/ml Total Protein 7.3 (6.4-8.2) gm/dl Albumin 4.1 (3.4-5.0) gm/dl Globulin 3.2 (2.5-4.0) gm/dl Albumin/Globulin Ratio 1.3 (0.9-2) TSH 1.850 (0.300-4.500) uIu/ml Urine Color Urine Appearance (Clear) Urine pH (4.5-7.5) Ur Specific [place] (1.000-1.030) Urine Protein (Negative) Urine Glucose (UA) (Negative) Urine Ketones (Negative) Urine Blood (Negative) Urine Nitrite (Negative) Urine Bilirubin (Negative) Urine Urobilinogen (Negative) Ur Leukocyte Esterase (Negative) Urine WBC (Auto) (0-5) /hpf Urine RBC (Auto) (0-4) /hpf U Hyaline Cast (Auto) (0-5) /lpf U Epithel Cells (Auto) (0-5) /lpf Urine Bacteria (Auto) (Negative) Salicylates (2.8-20) mg/dl Urine Opiates Screen (Neg) Ur Methadone, Qual (Neg) Acetaminophen (10-30) ug/ml Urine Barbiturates (Neg) Ur Phencyclidine (PCP) (Neg) U Amphetamin/Meth Scrn (Neg) MDMA (Ecstasy) Screen (Neg) U Benzodiazepines Scrn (Neg) Ur Cocaine Metabolite (Neg) U Marijuana (THC) Screen (Neg) Ethyl Alcohol mg/dL (0-3) mg/dl COVID-19 Eval Order Covid19 at [facility] SARS-CoV-2 (PCR) POSITIVE A* (Negative) 05/30/21 05/30/21 05/30/21 Range/Units 14:26 14:26 14:26 WBC 13.78 H (4.8-10.8) K/uL RBC 5.07 (4.2-5.4) M/uL Hgb 16.2 H (12.0-16.0) g/dL Hct 47.2 H (37-47) % MCV 93.1 (80-100) fL MCH 32.0 (25-34) pg MCHC 34.3 (32-36) g/dL RDW Std Deviation 45.8 (36.4-46.3) fL RDW Coeff of Darrian 13.4 (11.5-14.5) % Plt Count 200 (130-400) K/uL MPV 11.5 H (7.4-10.4) fL Immature Gran % (Auto) 0.5 % Neut % (Auto) 89.4 % Lymph % (Auto) 6.7 % [place] % (Auto) 3.0 % Eos % (Auto) 0.3 % Baso % (Auto) 0.1 % Neut # (Auto) 12.31 H (1.4-6.5) K/uL Lymph # (Auto) 0.92 L (1.2-3.4) K/uL [place] # (Auto) 0.42 (0.11-0.59) K/uL Eos # (Auto) 0.04 (0-0.5) K/uL Baso # (Auto) 0.02 (0-0.2) K/uL Immature Gran # (Auto) 0.07 H (0.00-0.02) K/uL Sodium (136-145) mmol/L Potassium (3.5-5.1) mmol/L Chloride (98-107) mmol/L Carbon Dioxide (21-32) mmol/L Anion Gap (3-11) BUN (7-18) mg/dl Creatinine (0.6-1.2) mg/dl Est Cr Clr Drug Dosing ml/min Est GFR ( Amer) ml/min Est GFR (Non-Af Amer) ml/min BUN/Creatinine Ratio (10-20) Glucose (70-99) mg/dl Calcium (8.5-10.1) mg/dl Magnesium (1.8-2.4) mg/dl Total Bilirubin (0.2-1) mg/dl AST (15-37) U/L ALT (12-78) U/L Alkaline Phosphatase (45-117) U/L Troponin I (0-0.045) ng/ml Total Protein (6.4-8.2) gm/dl Albumin (3.4-5.0) gm/dl Globulin (2.5-4.0) gm/dl Albumin/Globulin Ratio (0.9-2) TSH (0.300-4.500) uIu/ml Urine Color Urine Appearance (Clear) Urine pH (4.5-7.5) Ur Specific [place] (1.000-1.030) Urine Protein (Negative) Urine Glucose (UA) (Negative) Urine Ketones (Negative) Urine Blood (Negative) Urine Nitrite (Negative) Urine Bilirubin (Negative) Urine Urobilinogen (Negative) Ur Leukocyte Esterase (Negative) Urine WBC (Auto) (0-5) /hpf Urine RBC (Auto) (0-4) /hpf U Hyaline Cast (Auto) (0-5) /lpf U Epithel Cells (Auto) (0-5) /lpf Urine Bacteria (Auto) (Negative) Salicylates < 1.7 L (2.8-20) mg/dl Urine Opiates Screen (Neg) Ur Methadone, Qual (Neg) Acetaminophen < 2 L (10-30) ug/ml Urine Barbiturates (Neg) Ur Phencyclidine (PCP) (Neg) U Amphetamin/Meth Scrn (Neg) MDMA (Ecstasy) Screen (Neg) U Benzodiazepines Scrn (Neg) Ur Cocaine Metabolite (Neg) U Marijuana (THC) Screen (Neg) Ethyl Alcohol mg/dL < 3.0 (0-3) mg/dl COVID-19 Eval Order SARS-CoV-2 (PCR) (Negative) 05/30/21 05/30/21 Range/Units 15:39 15:39 WBC (4.8-10.8) K/uL RBC (4.2-5.4) M/uL Hgb (12.0-16.0) g/dL Hct (37-47) % MCV (80-100) fL MCH (25-34) pg MCHC (32-36) g/dL RDW Std Deviation (36.4-46.3) fL RDW Coeff of Darrian (11.5-14.5) % Plt Count (130-400) K/uL MPV (7.4-10.4) fL Immature Gran % (Auto) % Neut % (Auto) % Lymph % (Auto) % [place] % (Auto) % Eos % (Auto) % Baso % (Auto) % Neut # (Auto) (1.4-6.5) K/uL Lymph # (Auto) (1.2-3.4) K/uL [place] # (Auto) (0.11-0.59) K/uL Eos # (Auto) (0-0.5) K/uL Baso # (Auto) (0-0.2) K/uL Immature Gran # (Auto) (0.00-0.02) K/uL Sodium (136-145) mmol/L Potassium (3.5-5.1) mmol/L Chloride (98-107) mmol/L Carbon Dioxide (21-32) mmol/L Anion Gap (3-11) BUN (7-18) mg/dl Creatinine (0.6-1.2) mg/dl Est Cr Clr Drug Dosing ml/min Est GFR ( Amer) ml/min Est GFR (Non-Af Amer) ml/min BUN/Creatinine Ratio (10-20) Glucose (70-99) mg/dl Calcium (8.5-10.1) mg/dl Magnesium (1.8-2.4) mg/dl Total Bilirubin (0.2-1) mg/dl AST (15-37) U/L ALT (12-78) U/L Alkaline Phosphatase (45-117) U/L Troponin I (0-0.045) ng/ml Total Protein (6.4-8.2) gm/dl Albumin (3.4-5.0) gm/dl Globulin (2.5-4.0) gm/dl Albumin/Globulin Ratio (0.9-2) TSH (0.300-4.500) uIu/ml Urine Color Yellow Urine Appearance Clear (Clear) Urine pH 6.0 (4.5-7.5) Ur Specific [place] 1.018 (1.000-1.030) Urine Protein 1+ H (Negative) Urine Glucose (UA) Negative (Negative) Urine Ketones Trace H (Negative) Urine Blood Negative (Negative) Urine Nitrite Negative (Negative) Urine Bilirubin Negative (Negative) Urine Urobilinogen Negative (Negative) Ur Leukocyte Esterase Negative (Negative) Urine WBC (Auto) 1-5 (0-5) /hpf Urine RBC (Auto) 0-4 (0-4) /hpf U Hyaline Cast (Auto) 5-10 H (0-5) /lpf U Epithel Cells (Auto) 5-10 H (0-5) /lpf Urine Bacteria (Auto) Negative (Negative) Salicylates (2.8-20) mg/dl Urine Opiates Screen Neg (Neg) Ur Methadone, Qual Neg (Neg) Acetaminophen (10-30) ug/ml Urine Barbiturates Neg (Neg) Ur Phencyclidine (PCP) Neg (Neg) U Amphetamin/Meth Scrn Neg (Neg) MDMA (Ecstasy) Screen Neg (Neg) U Benzodiazepines Scrn Neg (Neg) Ur Cocaine Metabolite Neg (Neg) U Marijuana (THC) Screen Neg (Neg) Ethyl Alcohol mg/dL (0-3) mg/dl COVID-19 Eval Order SARS-CoV-2 (PCR) (Negative) Administered Medications Discontinued Medications Sodium Chloride (Nss) 500 mls @ 999 mls/hr IV .[id number] Stop: 05/30/21 13:45 Last Infusion: 05/30/21 17:07 Dose: 0 mls/hr Documented by: [id number] Admin: 05/30/21 14:29 Dose: 999 mls/hr Documented by: [id number] Lorazepam (Ativan) 1 mg in 2 mls @ 2 mls/min IV NOW STA Stop: 05/30/21 13:06 Last Admin: 05/30/21 14:38 Dose: 2 mls/min Documented by: [id number] Lorazepam (Ativan) 1 mg in 2 mls @ 2 mls/min IV NOW STA Stop: 05/30/21 16:48 Last Admin: 05/30/21 17:07 Dose: 2 mls/min Documented by: [id number] Imaging Data Radiologist's Impression: Head CT 05/30/21 13:[address] DOSE: 614.27 mGy.cm HISTORY: confusion TECHNIQUE: Multiaxial CT images of the head were performed without the use of intravenous contrast. Automated exposure control was utilized for this study. A dose lowering technique was utilized adhering to the principles of ALARA. Comparison: Head CT 07/07/2013. Findings: The paranasal sinuses and mastoid air cells are clear. The calvarium and skull base are intact. There is no mass, hematoma, midline shift, acute infarct. White matter hypodensity is nonspecific but suggestive of microvascular ischemic change. The ventricles and sulci demonstrate mild age-related involutional changes. Impression: No acute intracranial abnormality. Atrophy and microvascular ischemic changes. ACT 112: Negative or not required by law. Electronically signed by: Blair Keller M.D. 05/30/2021 3:06 PM Chest X-Ray 05/30/21 13:06 XR chest 1V portable CLINICAL HISTORY: weakness COMPARISON STUDY: Chest radiograph July 22, 2018. FINDINGS: Right shoulder arthroplasty is partially imaged. There is no pneumothorax or pleural effusion. No consolidation. There is pulmonary vascular congestion. Mild cardiomegaly is noted. There is no evidence for overt pulmonary edema. IMPRESSION: Mild cardiomegaly. Pulmonary vascular congestion without overt pulmonary edema. ACT 112: Negative or not required by law. Electronically signed by: Erick Foley M.D. 05/30/2021 2:14 PM Discharge Plan Visit Data Chief Complaint: Confusion ED Provider: Dannie Noyola Discharge Problem: Acute confusion, Agitation, Medication reaction, Psychosis Patient Disposition: Admitted As Inpatient Condition: Fair Forms Stand Alone Forms: My [facility] [employer] Prescriptions Prescriptions: No Action acetaminophen [Tylenol Arthritis Pain] 650 mg Tablet Extended Release 2 tab PO BID RF: 0 gh-5-rtj-epa-fish oil-vit D3 [Fish Oil-Vit D3] 300-1,000-1,000 mg-mg-unit Capsule 2 cap PO DAILY RF: 0 lamotrigine [Lamictal] 200 mg Tablet 200 mg PO QAM RF: 0 spironolacton-hydrochlorothiaz 25-25 mg Tablet 1 tab PO QAM RF: 0 simvastatin 10 mg Tablet 10 mg PO HS RF: 0 aspirin 81 mg Tablet,Delayed Release (Dr/Ec) 1 tab PO QAM RF: 0 desloratadine [Clarinex] 5 mg Tablet 5 mg PO DAILY RF: 0 omeprazole magnesium [Prilosec OTC] 20 mg Tablet,Delayed Release (Dr/Ec) 40 mg PO QPM RF: 0 Restasis 0.05 % Dropperette 1 drp OPHTHALMIC (EYE) BID RF: 0 sodium chloride [Saline Nasal] 0.65 % Aerosol,[place] 1 spray INTRANASAL Q8H PRN (Reason: Congestion) RF: 0 naproxen sodium 220 mg Capsule 220 mg PO Q8 PRN (Reason: Pain) RF: 0 Referrals Referrals: Pedro Moss, [Primary Care Provider] -
[2021-05-30] MEDS ORDERED: SODIUM CHLORIDE 0.9% 500 ML IV SCH (13:15)
--- NOTE | 2021-05-30 14:16 | XRay Report ---
XR chest 1V portable CLINICAL HISTORY: weakness COMPARISON STUDY: Chest radiograph July 22, 2018. FINDINGS: Right shoulder arthroplasty is partially imaged. There is no pneumothorax or pleural effusi on. No consolidation. There is pulmonary vascular congestion. Mild cardiomegaly is noted. There is no evidence for overt pulmonary edema. IMPRESSION: Mild cardiomegaly. Pulmonary vascular congestion without overt pulmonary edema. ACT 112: Negative or not required by law. Electronically signed by: Erick Foley M.D. 05/30/2021 2:14 PM
[2021-05-30 14:40] LABS: Basophils # (auto) 0.02 K/uL (0-0.2); Basophils % (auto) 0.1 %; Eosinophils # (auto) 0.04 K/uL (0-0.5); Eosinophils % (auto) 0.3 %; Hematocrit (blood only) 47.2 % (37-47); Hemoglobin 16.2 g/dL (12.0-16.0); Immature Granulocytes # (auto) 0.07 K/uL (0.00-0.02); Immature Granulocytes % (auto) 0.5 %; Lymphocytes # (auto) 0.92 K/uL (1.2-3.4); Lymphocytes % (auto) 6.7 %; Mean Corpuscular Hgb Conc 34.3 g/dL (32-36); Mean Corpuscular Volume 93.1 fL (80-100); Mean Platelet Volume 11.5 fL (7.4-10.4); Monocytes # (auto) 0.42 K/uL (0.11-0.59); Neutrophils # (auto) 12.31 K/uL (1.4-6.5); Neutrophils % (auto) 89.4 %; Platelet Count 200 K/uL (130-400); RDW Coefficient of Variation 13.4 % (11.5-14.5); RDW Standard Deviation 45.8 fL (36.4-46.3); Red Blood Count 5.07 M/uL (4.2-5.4); White Blood Count 13.78 K/uL (4.8-10.8)
[2021-05-30 14:59] LABS: Alanine Aminotransferase 25 U/L (12-78); Albumin Level 4.1 gm/dl (3.4-5.0); Aspartate Aminotransferase 20 U/L (15-37); BUN Creatinine Ratio 23.1 (10-20); Blood Urea Nitrogen 34 mg/dl (7-18); Calcium 9.8 mg/dl (8.5-10.1); Carbon Dioxide 22 mmol/L (21-32); Chloride 109 mmol/L (98-107); Creatinine Clr Calc Pharmacy 43.2 ml/min; Est GFR (African American) 40.4 ml/min; Est GFR (Non-African American) 34.9 ml/min; Glucose 118 mg/dl (70-99); Potassium 3.9 mmol/L (3.5-5.1); Sodium 140 mmol/L (136-145)
[2021-05-30 15:04] LABS: Acetaminophen < 2 ug/ml (10-30); Salicylate < 1.7 mg/dl (2.8-20)
--- NOTE | 2021-05-30 15:07 | CT Scan Report ---
HEAD CT NONCONTRAST CT DOSE: 614.27 mGy.cm HISTORY: confusion TECHNIQUE: Multiaxial CT images of the head were performed without the use of intravenous contrast. A utomated exposure control was utilized for this study. A dose lowering technique was utilized adheri ng to the principles of ALARA. Comparison: Head CT 07/07/2013. Findings: The paranasal sinuses and mastoid air cells are clear. The calvarium and skull base are int act. There is no mass, hematoma, midline shift, acute infarct. White matter hypodensity is nonspecifi c but suggestive of microvascular ischemic change. The ventricles and sulci demonstrate mild age-rela marin involutional changes. Impression: No acute intracranial abnormality. Atrophy and microvascular ischemic changes. ACT 112: Negative or not required by law. Electronically signed by: Blair Keller M.D. 05/30/2021 3:06 PM
[2021-05-30 15:09] LABS: Albumin Globulin Ratio 1.3 (0.9-2); Alkaline Phosphatase 69 U/L (45-117); Bilirubin,Total 0.8 mg/dl (0.2-1); Globulin 3.2 gm/dl (2.5-4.0); Total Protein 7.3 gm/dl (6.4-8.2); Troponin I < 0.015 ng/ml (0-0.045)
[2021-05-30 16:11] LABS: Appearance Urine Clear (Clear); Bacteria Urine Automated Negative (Negative); Bilirubin Urine Negative (Negative); Blood Urine Negative (Negative); Color Urine Yellow; Glucose Urine UA Negative (Negative); Ketones Urine Trace (Negative); Leukocyte Esterase Urine Negative (Negative); Nitrite Urine Negative (Negative); Protein Urine 1+ (Negative); RBC Urine Automated 0-4 /hpf (0-4); Specific Gravity Urine 1.018 (1.000-1.030); Urobilinogen Urine Negative (Negative)
--- NOTE | 2021-05-30 16:16 | Electrocardiogram Report ---
Test Reason : Blood Pressure : / mmHG Vent. Rate : 080 BPM Atrial Rate : 080 BPM P-R Int : 304 ms QRS Dur : 084 ms QT Int : 414 ms P-R-T Axes : 075 084 063 degrees QTc Int : 477 ms Sinus rhythm with 1st degree A-V block with occasional Premature ventricular complexes and Premature atrial complexes Abnormal ECG When compared with ECG of 22-JUL-2018 13:17, Premature ventricular complexes are now Present Confirmed by Jaspal Hidalgo ([id number]) on 05/30/2021 4:16:00 PM Referred By: REFERRED SELF Confirmed By:Jaspal Hidalgo
[2021-05-30 16:31] LABS: Amphetamines+Metham, Urine Neg (Neg); Barbiturates, Urine Neg (Neg); Benzodiazepine, Urine Neg (Neg); Cocaine, Urine Neg (Neg); MDMA (Ecstacy), Urine Neg (Neg); Methadone, Urine Neg (Neg); Opiate, Urine Neg (Neg); Phencyclidine, Urine Neg (Neg)
[2021-05-30] MEDS ORDERED: QUEtiapine FUMARATE 25 MG TABLET PO ONE (19:48)
[2021-05-30] MEDS ORDERED: HALOPERIDOL LACTATE 5 MG/ML 1 ML VIAL IV PRN (19:48)
--- NOTE | 2021-05-30 19:48 | History & Physical Report ---
Date of Service May 30, 2021 Assessment & Plan (1) Bipolar disorder: Plan: Questionable metabolic encephalopathy from change in medications managing her bipolar disorder now with psychosis. Using Seroquel and Haldol as needed psychiatric consultation if other metabolic issues to become quiescent (2) COVID: Plan: Unclear meeting of positive Covid PCR nasal testing. Patient's previously had a Covid infection and and was immunized in March 2021 this was the [employer] one-time vaccine I believe the stated that the date may have been March 12. We will have an airborne isolation at this time patient is not hypoxic needing any steroid treatment and without symptoms does not qualify for remdesivir treatment. Need to discuss with infection control the duration of isolation since she is asymptomatic at this time unless you count the confusion is one of her symptoms (3) Acute kidney injury: Plan: Patient with acute kidney injury on chronic kidney disease stage III patient has had decreased oral intake over the last few days we will hydrate and follow her renal function (4) DVT prophylaxis: Plan: Additional dosing of Lovenox will be had not twice daily dosing at this time History of Present Illness Primary Care Provider: Pedro Moss DO The pt was brought in by her after collapsing at home, reportedly had her lithium changed due to renal dysfunction and started on lithium for her bipolar disorder. Over the last 2-3 days had changes in behavior instead of her pretreatment days. Reportedly the patient was eating and drinking less. On the day of presentation she reportedly was fearful leave her bedroom. When she was coaxed to the living room she stat and started a wall. Reportedly then she contorted her face had some shaking episodes of her shoulders and then she became limp and fell to the ground. Her could not get her off the ground and summoned 911 and they brought her to the emergency department initial screening for metabolic causes were negative with exception of a Covid positive PCR test. Patient reportedly had Covid infection and was vaccinated last in March 2021 she has had no focal Covid symptoms such as loss of taste or smell, diarrhea or upper respiratory symptoms and currently is not hypoxic in the ER. In the emergency department the patient was confabulating answers to questions with not trusting any of the healthcare providers interfacing with her. I spoke to psychiatry on-call who agrees to see her in the morning once metabolic causes have been ruled out. It is unclear whether this Covid test would count as a metabolic source of her encephalopathy. Subsequently recommendations for Seroquel 50 mg now and 50 every 6 as needed and also as needed Haldol will be administered. we will continue her Lamictal at this time. Initial concerns for seizure are not completely clear we may pursue an EEG but likely would wait till she is out of Covid isolation. If concern and a neurology evaluation is needed we will discuss this with neurology on-call Allergies Allergy/AdvReac Type Severity Reaction Status Date / Time carbamazepine Allergy Unknown ITCHY, Verified 05/30/21 18:41 INVOLUNTARY BODY MOVEMENTS grass pollen-perennial rye, Allergy Unknown ITCHY EYES Verified 05/30/21 18:41 standar STUFFY mold Allergy Unknown ITCHY Verified 05/30/21 18:41 EYES, STUFFY ragweed pollen Allergy Unknown ITCHY Verified 05/30/21 18:41 EYES, STUFFY Dust Allergy Unknown ITCHY Uncoded 05/30/21 18:41 EYES, STUFFY [place] Allergy Unknown ITCHY EYES Uncoded 05/30/21 18:41 STUFFY [place] Allergy Unknown ITCHY Uncoded 05/30/21 18:41 EYES, STUFFY Home Medications Medication Instructions Recorded Confirmed Type acetaminophen 650 mg 2 tab PO BID 07/17/18 05/30/21 History tablet,extended release (Tylenol Arthritis Pain) aspirin 81 mg tablet,delayed 1 tab PO QAM 07/17/18 05/30/21 History release cyclosporine 0.05 % eye drops in a 1 drp OPHTHALMIC (EYE) BID 07/17/18 05/30/21 History dropperette (Restasis) desloratadine 5 mg tablet 5 mg PO DAILY 07/17/18 05/30/21 History (Clarinex) lamotrigine 200 mg tablet 200 mg PO QAM 07/17/18 05/30/21 History (Lamictal) [id number]-fish oil-vit D3 300 2 cap PO DAILY 07/17/18 05/30/21 History mg-1,000 mg-1,000 unit capsule (Fish Oil-Vit D3) omeprazole magnesium 20 mg 40 mg PO QPM 07/17/18 05/30/21 History tablet,delayed release (Prilosec OTC) simvastatin 10 mg tablet 10 mg PO HS 07/17/18 05/30/21 History sodium chloride 0.65 % nasal spray 1 spray INTRANASAL Q8H PRN 07/17/18 05/30/21 History aerosol (Saline Nasal) spironolactone 25 1 tab PO QAM 07/17/18 05/30/21 History mg-hydrochlorothiazide 25 mg tablet naproxen sodium 220 mg capsule 220 mg PO Q8 PRN 08/23/18 05/30/21 History Past Med/Surg History Medical History (Updated 05/30/21 @ 19:47 by Sridhar Short MD) Anxiety Bipolar disorder ON LAMICTAL Bradycardia CHRONIC Cancer BREAST CA S/P LUMPECTOMY/RADIATION (LAST 2009) CKD (chronic kidney disease) Depression Dry eye syndrome GERD (gastroesophageal reflux disease) CONTROLLED Hyperlipidemia Hypertension Morbid obesity PEDRO (obstructive sleep apnea) NO DEVICE Osteoarthritis Surgical History (System 04/27/20 @ 14:43 by Amairani Garcia) H/O total hip arthroplasty LT History of cholecystectomy History of hysterectomy S/P rotator cuff repair RIGHT SHOULDER ARTHROSCOPY= 12/28/17= GRADE 1 VIEW, MAC#3, ETT 7.5 AT [facility] S/P total knee arthroplasty BL Status post left breast lumpectomy X2 Status post right foot surgery Social History Smoking Status: Never smoker Second Hand Exposure: No; Hx Alcohol Use: No Hx Substance Use: No Preferred Language: Jordanian Communication Ability: Effective Gamemaster Required: No Beliefs That Will Affect Care: None marital status: Current Living Situation: Spouse Feels Safe at Home: Yes Assistive Devices: Walker Review of Systems Review of Systems: Unable to obtain review of systems due to altered mental status/encephalopathy Physical Exam Physical Exam: The patient appeared well nourished and normally developed. Vital signs as documented. Head exam is normocephalic atraumatic Neck is without JVD, thyromegaly, or carotid bruits. Lungs are clear to auscultation, no focal loss of breath sounds Cardiac exam, Rhythm is regular.. No murmurs, rubs or gallops. Abdominal exam reveals normal bowel sounds, soft non tender, no masses Extremities are nonedematous and both pedal pulses are present Neurologic exam is alert and oriented, no focal loss of strength or sensation Skin is without bruises or rashes Psychologically is with pressured speech confabulation of information paranoia Results & Data Results & Data ([facility]) Vital Signs (Past 12 Hours) Vital Signs Temp Pulse Resp BP Pulse Ox 05/30/21 19:01 86 22 171/104 H 95 05/30/21 18:30 81 20 165/77 H 95 05/30/21 18:00 81 19 165/94 H 05/30/21 17:31 82 20 144/76 H 05/30/21 17:00 94 H 18 157/87 H 05/30/21 16:30 82 23 145/102 H 05/30/21 16:00 91 H 17 159/106 H 05/30/21 15:00 84 23 96 05/30/21 14:33 80 19 98 05/30/21 14:00 77 20 192/89 H 98 05/30/21 13:30 85 19 171/130 H 96 05/30/21 13:24 97 05/30/21 13:00 68 21 176/78 H 98 05/30/21 12:39 98.4 F 90 18 175/90 H 98 05/30/21 12:30 83 20 158/91 H [address] 05/30/21 13:[address] DOSE: 614.27 mGy.cm HISTORY: confusion TECHNIQUE: Multiaxial CT images of the head were performed without the use of intravenous contrast. Automated exposure control was utilized for this study. A dose lowering technique was utilized adhering to the principles of ALARA. Comparison: Head CT 07/07/2013. Findings: The paranasal sinuses and mastoid air cells are clear. The calvarium and skull base are intact. There is no mass, hematoma, midline shift, acute infarct. White matter hypodensity is nonspecific but suggestive of microvascular ischemic change. The ventricles and sulci demonstrate mild age-related involutional changes. Impression: No acute intracranial abnormality. Atrophy and microvascular ischemic changes. ACT 112: Negative or not required by law. Electronically signed by: Blair Keller M.D. 05/30/2021 3:06 PM Chest X-Ray 05/30/21 13:06 XR chest 1V portable CLINICAL HISTORY: weakness COMPARISON STUDY: Chest radiograph July 22, 2018. FINDINGS: Right shoulder arthroplasty is partially imaged. There is no pneumothorax or pleural effusion. No consolidation. There is pulmonary vascular congestion. Mild cardiomegaly is noted. There is no evidence for overt pulmonary edema. IMPRESSION: Mild cardiomegaly. Pulmonary vascular congestion without overt pulmonary edema. ACT 112: Negative or not required by law. Electronically signed by: Erick Foley M.D. 05/30/2021 2:14 PM Code Status & VTE Plan VTE Prophylaxis Plan VTE Prophylaxis will be ordered: Yes PG Care Time/CCT Total # of Minutes Spent Total Time Spent with Patient: Total time spent is greater than 50% in coordination of care (as documented) at patient's floor/unit and/or counseling patient: Coding Level of Care Code 77744 Initial Inpt Care Lvl 2 Diagnoses Bipolar disorder F31.9 COVID U07.1 Acute kidney injury N17.9 DVT prophylaxis Z29.9
[2021-05-30] MEDS: ENOXAPARIN INJ 40 MG/0.4 ML SYR SQ SCH (20:18)
[2021-05-30] MEDS: LACTATED RINGER'S 1,000 ML IV SCH (20:19)
[2021-05-31] MEDS ORDERED: POLYETHYLENE (MIRALAX) 17 GM PACK PO PRN (00:40)
[2021-05-31] MEDS ORDERED: ONDANSETRON INJ 2 MG/ML 2 ML VIAL IV PRN (00:40)
[2021-05-31] MEDS ORDERED: ALUMINUM/MAGNESIUM SUSP 30 ML UDC PO PRN (00:40)
[2021-05-31] MEDS ORDERED: SODIUM CHLORIDE 0.65% NA SOLN 45 ML (OCEAN) PRN (00:40)
[2021-05-31] MEDS: QUEtiapine FUMARATE 25 MG TABLET PO SCH ×4 (02:11→21:47)
[2021-05-31 02:18] LABS: Lyme Ab IgG w/WB Rflx Negative (Negative); Lyme Ab IgM w/WB Rflx Negative (Negative)
[2021-05-31] MEDS: LACTATED RINGER'S 1,000 ML IV SCH (06:28)
[2021-05-31] MEDS: RESTASIS~ORDER AWAITING ACTION SCH ×2 (08:38→15:20)
[2021-05-31] MEDS ORDERED: SPIRONOLACTONE/HCTZ 25-25 PO SCH (09:00)
[2021-05-31] MEDS: ASPIRIN 81 MG ECTAB PO SCH (09:16)
[2021-05-31] MEDS: ACETAMINOPHEN 325 MG TAB PO SCH ×2 (09:17→21:46)
[2021-05-31] MEDS: lamoTRIgine 100 MG TAB PO SCH (09:51)
--- NOTE | 2021-05-31 09:51 | Hospitalist Progress Note ---
Date of Service May 31, 2021 Assessment & Plan (1) Bipolar disorder: Plan: Questionable metabolic encephalopathy from change in medications managing her bipolar disorder now with psychosis. Using Seroquel and Haldol as needed psychiatric consultation With exception of Covid positive status other medical issues seem not to be present at this time (2) COVID: Plan: Unclear meeting of positive Covid PCR nasal testing. Patient's previously had a Covid infection and and was immunized in March 2021 this was the [employer] one-time vaccine I believe the stated that the date may have been March 12. We will have an airborne isolation at this time patient is not hypoxic needing any steroid treatment and without symptoms does not qualify for remdesivir treatment. Need to discuss with infection control the duration of isolation since she is asymptomatic at this time unless you count the confusion is one of her symptoms Repeat Covid testing 05/31 (3) Acute kidney injury: Plan: Resolved with hydration (4) DVT prophylaxis: Plan: Additional dosing of Lovenox will be had not twice daily dosing at this time Admission and Anticipated Discharge Date Admission Date: May 30, 2021 Subjective Patient is more calm today sometimes Arturo she is not remember meeting any is not aware she is she however is more directable Review of Systems Review of Systems: Unable to obtain review of systems due to altered mental status/encephalopathy. She denies any focal complaints or problems except for some minor muscular back pain Physical Exam Physical Exam: The patient appeared well nourished and normally developed. Vital signs as documented. Head exam is normocephalic atraumatic Neck is without JVD, thyromegaly, or carotid bruits. Lungs are clear to auscultation, no focal loss of breath sounds Cardiac exam, Rhythm is regular.. No murmurs, rubs or gallops. Abdominal exam reveals normal bowel sounds, soft non tender, no masses Extremities are nonedematous and both pedal pulses are present Neurologic exam is alert and oriented, no focal loss of strength or sensation Skin is without bruises or rashes Psychologically is with pressured speech confabulation of information paranoia Results & Data Results & [facility] ([facility]) Vital Signs (Past 12 Hours) Vital Signs Temp Pulse Pulse Pulse Resp BP BP 05/31/21 08:21 98.1 F 72 21 157/75 H 05/31/21 07:40 70 05/31/21 00:40 157/98 H 05/31/21 00:15 98.1 F 78 20 188/104 H 05/30/21 23:30 67 22 141/86 H 05/30/21 23:01 67 16 146/100 H 05/30/21 22:30 64 16 124/74 05/30/21 22:00 71 16 137/74 Pulse Ox 05/31/21 08:21 95 05/31/21 07:40 05/31/21 00:40 05/31/21 00:15 98 05/30/21 23:30 93 05/30/21 23:01 93 05/30/21 22:30 92 05/30/21 22:00 91 PG Care Time/CCT Total # of Minutes Spent Total Time Spent with Patient: Total time spent is greater than 50% in coordination of care (as documented) at patient's floor/unit and/or counseling patient: Coding Level of Care Code 69071 Subseq Hosp Care Lvl 2 Diagnoses Bipolar disorder F31.9 COVID U07.1 Acute kidney injury N17.9 DVT prophylaxis Z29.9
[2021-05-31 11:03] LABS: Hematocrit (blood only) 43.1 % (37-47); Hemoglobin 14.7 g/dL (12.0-16.0); Mean Corpuscular Hemoglobin 32.4 pg (25-34); Mean Corpuscular Hgb Conc 34.1 g/dL (32-36); Mean Corpuscular Volume 94.9 fL (80-100); Mean Platelet Volume 11.3 fL (7.4-10.4); Platelet Count 168 K/uL (130-400); RDW Coefficient of Variation 13.6 % (11.5-14.5); RDW Standard Deviation 46.9 fL (36.4-46.3); Red Blood Count 4.54 M/uL (4.2-5.4); White Blood Count 8.66 K/uL (4.8-10.8)
[2021-05-31 11:20] LABS: BUN Creatinine Ratio 23.9 (10-20); Creatinine Clr Calc Pharmacy 56.6 ml/min; Est GFR (African American) 58.4 ml/min; Est GFR (Non-African American) 50.4 ml/min; Potassium 3.7 mmol/L (3.5-5.1)
--- NOTE | 2021-05-31 15:22 | Communication Note ---
Date of Service: May 31, 2021 Stop by to see patient today who was resting appropriately. Medical team still working on metabolic encephalopathy vs infectious etiology for altered mental status. Psychiatry aware of patient and has recommended 50 mg of Seroquel every 6 hours to help stabilize patient's agitation. Seroquel medication seems to be appropriately addressing symptoms at this time during medical work-up, will continue to monitor.
[2021-05-31] MEDS ORDERED: QUEtiapine FUMARATE 25 MG TABLET PO PRN (15:38)
[2021-05-31] MEDS: ENOXAPARIN INJ 40 MG/0.4 ML SYR SQ SCH (21:47)
[2021-05-31] MEDS: PANTOprazole 40 MG TAB PO SCH (21:47)
[2021-06-01] MEDS: RESTASIS~ORDER AWAITING ACTION SCH ×3 (01:34→16:01)
--- NOTE | 2021-06-01 08:33 | Hospitalist Progress Note ---
Date of Service June 01, 2021 Assessment & Plan (1) Bipolar disorder: Plan: Questionable encephalopathy of undetermined significance, initial discussion of change in medications managing her bipolar disorder now with psychosis now less likely as the change was years ago.. Continue using Seroquel at bedtime plus her typical Lamictal. Psychiatric consultation does not recommend any further in patient care Initial Covid positive status now Covid negative consider third test 24 hours after second (2) COVID: Plan: Unclear meeting of positive Covid PCR nasal testing. Patient's previously had a Covid infection and and was immunized in March 2021 this was the [employer] one-time vaccine I believe the stated that the date may have been March 12. We will have an airborne isolation at this time patient is not hypoxic needing any steroid treatment and without symptoms does not qualify for remdesivir treatment. Need to discuss with infection control the duration of isolation since she is asymptomatic at this time unless you count the confusion is one of her symptoms Repeat Covid testing 05/31 now negative infection control to 5 (3) Acute kidney injury: Plan: Resolved with hydration (4) DVT prophylaxis: Plan: Additional dosing of Lovenox will be had not twice daily dosing at this time Admission and Anticipated Discharge Date Admission Date: May 30, 2021 Subjective Patient is slightly tired but much more alert awake back to baseline appropriate with her discussion and decision making cannot recall events that led her to the state that she was in. Her is concerned given her contortion of her face that she may have had a seizure or stroke initial CT scan was unremarkable we will pursue MRI scan overnight. Was seen by psychiatry and released Review of Systems Review of Systems: Mild distress and fatigue no headache, no visual changes no speech or swallowing issues no chest pain, pressure or palpitations no shortness of breath, cough or wheezes no abdominal pain, nausea or vomiting, diarrhea or constipation no dysuria, hematuria or frequency no focal joint pain or swelling no back pain, CVA tenderness or radicular pain no bruising, bleeding or rashes no focal signs of weakness or numbness or altered sensation no complaints of anxiety or depression.. Some memory loss Physical Exam Physical Exam: The patient appeared well nourished and normally developed. Vital signs as documented. Head exam is normocephalic atraumatic Neck is without JVD, thyromegaly, or carotid bruits. Lungs are clear to auscultation, no focal loss of breath sounds Cardiac exam, Rhythm is regular.. No murmurs, rubs or gallops. Abdominal exam reveals normal bowel sounds, soft non tender, no masses Extremities are nonedematous and both pedal pulses are present Neurologic exam is alert and oriented x3, no focal loss of strength or sensation Skin is without bruises or rashes Psychologically is without any pressured speech or confabulation appropriate discussion Results & Data Results & Data ([facility]) Vital Signs (Past 12 Hours) Vital Signs Temp Pulse Resp BP Pulse Ox 05/31/21 22:36 97.9 F 73 18 137/80 94 PG Care Time/CCT Total # of Minutes Spent Total Time Spent with Patient: Total time spent is greater than 50% in coordination of care (as documented) at patient's floor/unit and/or counseling patient: Coding Level of Care Code 05334 Subseq Hosp Care Lvl 2 Diagnoses Bipolar disorder F31.9 COVID U07.1 Acute kidney injury N17.9 DVT prophylaxis Z29.9
[2021-06-01] MEDS: ASPIRIN 81 MG ECTAB PO SCH (09:21)
[2021-06-01] MEDS: ACETAMINOPHEN 325 MG TAB PO SCH (09:21)
[2021-06-01] MEDS: lamoTRIgine 100 MG TAB PO SCH (09:21)
[2021-06-01] MEDS ORDERED: SPIRONOLACTONE/HCTZ 25-25 PO ONE (12:29)
[2021-06-01] MEDS: ACETAMINOPHEN 500 MG TAB PO SCH ×3 (14:04→21:51)
--- NOTE | 2021-06-01 16:31 | Psychiatric Consultation ---
Date of Consultation June 01, 2021 Impression / Recommendations Impression 76-year-old female with history of bipolar disorder who presented with AMS. Patient's mental status has since cleared up rapidly in the last 2 days despite very little psychiatric intervention. Furthermore collateral information was clarified and her medication changes have not been recent. The lack of recent med changes, her long history of psychiatric stability, and her rapid resolution of symptoms are more likely explained by a medical cause of delirium as opposed to a manic episode. Patient at this time is without any acute psychiatric symptoms and is willing and able to follow-up with her outpatient provider on a scheduled basis for her psychiatric needs in the community. No further psychiatric intervention at this time. Patient is cleared from a psychiatric standpoint. Recommendations: No further psychiatric medications. Patient is cleared from a psychiatric perspective Psych History Chief Complaint "am feeling much better thank you". History of Present Illness Patient is a 76-year-old female with a history of bipolar disorder who presents with altered mental status. Per patient's behavior change suddenly and she was becoming aggressive and violent which progressed to nonsensical and tangential speech. Patient has been provided information of recent psychiatric medication changes. As medical work-up for AMS proceeded psychiatry recommended Seroquel 50 mg p.o. every 6 hours to control agitation. Patient began to improve medically and spoke to the psychiatric liaison today. As per psychiatric liaison " Spoke to pt over the phone due to covid status. Pt alert and oriented x4. Pleasant and cooperative. Pt states she has been seeing Dr. Adams for at least 20 years. She stated she was previously on [place] but was switched to Lamictal "several years ago" and has been maintained on that. She states she has been stable on Lamictal 200 po qam. She stated she sees Dr. Adams every 6 months and she had a follow up appointment via telephone last month. She plans to follow up with him in 5 months. She is denies any assistance with arranging an appointment. She denies any needs from our services or any questions/concerns at this time. Gave a verbal consent with two nurses for Dr. Adams to release her psych consult. Encouraged pt to reach out to nurse if she has any future psych needs during her hospitalization." Upon evaluation this afternoon, patient did endorse the above information is accurate. She stated that her was mistaken and that her medication changes were actually several years ago. She stated that she has bipolar disorder and has been without symptoms for over a decade. Patient states he has been seeing the same psychiatrist for past 25 years have been taking lithium for quite some time but has been changed to Lamictal she would estimate about 4 years ago. She denies any recent changes in mood but states that she does have some confusion regarding her presentation to the hospital. Patient remembers last that she was arguing with her and had fallen on the floor. Patient states that following that time she does not have a recollection of the past day and a half or so. Today, patient is presenting much clear without any instances of altered mentation. She is alert and oriented and able to describe both her psychiatric past as well as speaking with her life in general with her in a clear consistent manner. She is denying any psychosis or hallucinations or changes in mood. Past Psychiatric History Previous Psych History: History of bipolar disorder Allergies Allergy/AdvReac Type Severity Reaction Status Date / Time carbamazepine Allergy Unknown ITCHY, Verified 05/30/21 18:41 INVOLUNTARY BODY MOVEMENTS grass pollen-perennial rye, Allergy Unknown ITCHY EYES Verified 05/30/21 18:41 standar STUFFY mold Allergy Unknown ITCHY Verified 05/30/21 18:41 EYES, STUFFY ragweed pollen Allergy Unknown ITCHY Verified 05/30/21 18:41 EYES, STUFFY Home Medications Medication Instructions Recorded Confirmed Type acetaminophen 650 mg 2 tab PO BID 07/17/18 05/30/21 History tablet,extended release (Tylenol Arthritis Pain) aspirin 81 mg tablet,delayed 1 tab PO QAM 07/17/18 05/30/21 History release cyclosporine 0.05 % eye drops in a 1 drp OPHTHALMIC (EYE) BID 07/17/18 05/30/21 History dropperette (Restasis) desloratadine 5 mg tablet 5 mg PO DAILY 07/17/18 05/30/21 History (Clarinex) lamotrigine 200 mg tablet 200 mg PO QAM 07/17/18 05/30/21 History (Lamictal) pk-3-ybg-epa-fish oil-vit D3 300 2 cap PO DAILY 07/17/18 05/30/21 History mg-1,000 mg-1,000 unit capsule (Fish Oil-Vit D3) omeprazole magnesium 20 mg 40 mg PO QPM 07/17/18 05/30/21 History tablet,delayed release (Prilosec OTC) simvastatin 10 mg tablet 10 mg PO HS 07/17/18 05/30/21 History sodium chloride 0.65 % nasal spray 1 spray INTRANASAL Q8H PRN 07/17/18 05/30/21 History aerosol (Saline Nasal) spironolactone 25 1 tab PO QAM 07/17/18 05/30/21 History mg-hydrochlorothiazide 25 mg tablet naproxen sodium 220 mg capsule 220 mg PO Q8 PRN 08/23/18 05/30/21 History Personal History Beliefs That Will Affect Care: None Patient History Medical History (Updated 05/30/21 @ 19:47 by Sridhar Short MD) Anxiety Bipolar disorder ON LAMICTAL Bradycardia CHRONIC Cancer BREAST CA S/P LUMPECTOMY/RADIATION (LAST 2009) CKD (chronic kidney disease) Depression Dry eye syndrome GERD (gastroesophageal reflux disease) CONTROLLED Hyperlipidemia Hypertension Morbid obesity PEDRO (obstructive sleep apnea) NO DEVICE Osteoarthritis Surgical History (System 04/27/20 @ 14:43 by Amairani Garcia) H/O total hip arthroplasty LT History of cholecystectomy History of hysterectomy S/P rotator cuff repair RIGHT SHOULDER ARTHROSCOPY= 12/28/17= GRADE 1 VIEW, MAC#3, ETT 7.5 AT [facility] S/P total knee arthroplasty BL Status post left breast lumpectomy X2 Status post right foot surgery Social History Smoking Status: Unknown if ever smoked Second Hand Exposure: No; Preferred Language: Tajik Communication Ability: Effective Dentist Private Practice Required: No Beliefs That Will Affect Care: None marital status: Current Living Situation: Spouse Feels Safe at Home: Declines to Answer Assistive Devices: Walker Physical Exam Psychiatric: Orientation: alert and oriented x 3 Apperance: appropriately groomed Eye Contact: good eye contact Motor Behavior: steady gait and station Speech: normal rate/rhythm/volume of speech Affect: euthymic affect Mood: no depressed mood and no anxious mood Thought Process: goal directed thought process Thought Content: reality based without delusions Suicidal Thoughts: denies suicidal thoughts, denies suicidal plan and denies suicidal intent Homicidal Thoughts: denies homicidal thoughts, denies homicidal plan and denies homicidal intent Hallucinations: no auditory hallucinations and no visual hallucinations Cognition: attention grossly intact and language grossly intact Estimated Intelligence: consistent with education level Insight: good insight Judgement: good judgement Vital Signs (Past 24 Hours): Last Vital Signs Temp 36.7 C 06/01/21 14:30 Pulse 75 06/01/21 14:30 Resp 18 06/01/21 14:30 BP 167/75 H 06/01/21 14:30 Pulse Ox 96 06/01/21 14:30 Review of Systems All systems reviewed & are unremarkable except as noted in HPI & below Results & Data (PSY) Medications Administered Acetaminophen (Acetaminophen 500 Mg Tab) 1,000 mg PO TID ON LICENSE OF [facility] Stop: 07/01/21 12:34 Last Admin: 06/01/21 14:38 Dose: Not Given Documented by: [id number] Admin: 06/01/21 14:04 Dose: 1,000 mg Documented by: [id number] Aspirin (Aspirin 81 Mg Ectab) 81 mg PO [facility] Stop: 06/30/21 08:59 Last Admin: 06/01/21 09:21 Dose: Not Given Documented by: [id number] Admin: 05/31/21 09:16 Dose: 81 mg Documented by: [id number] Enoxaparin Sodium (Enoxaparin Inj 40 Mg/0.4 Ml Syr) 40 mg SQ Q24H ON LICENSE OF [facility] Stop: 06/29/21 19:47 Last Admin: 05/31/21 21:47 Dose: 40 mg Documented by: [id number] Admin: 05/30/21 20:18 Dose: 40 mg Documented by: [id number] Haloperidol Lactate (Haloperidol Lactate 5 Mg/Ml 1 Ml Vial) 5 mg IV Q6H PRN PRN Reason: Agitation Stop: 06/29/21 19:47 Last Admin: 05/31/21 02:12 Dose: 5 mg Documented by: [id number] Lamotrigine (Lamotrigine 100 Mg Tab) 200 mg PO [facility] Stop: 06/30/21 08:59 Last Admin: 06/01/21 09:21 Dose: 200 mg Documented by: [id number] Admin: 05/31/21 09:51 Dose: 200 mg Documented by: [id number] Miscellaneous (Restasis~Order Awaiting Action) 1 ea N/A QS ON LICENSE OF [facility] Stop: 06/30/21 07:59 Last Admin: 06/01/21 16:01 Dose: Not Given Documented by: [id number] Admin: 06/01/21 09:16 Dose: Not Given Documented by: [id number] Admin: 06/01/21 01:34 Dose: Not Given Documented by: [id number] Admin: 05/31/21 15:20 Dose: Not Given Documented by: [id number] Admin: 05/31/21 08:38 Dose: Not Given Documented by: [id number] Pantoprazole Sodium (Pantoprazole 40 Mg Tab) 40 mg PO QPM KLARISSA Stop: 06/30/21 20:59 Last Admin: 05/31/21 21:47 Dose: 40 mg Documented by: [id number] Quetiapine Fumarate (Quetiapine Fumarate 25 Mg Tablet) 50 mg PO HS KLARISSA Stop: 06/30/21 20:59 Last Admin: 05/31/21 21:47 Dose: 50 mg Documented by: [id number] Coding Level of Care Code 55134 U Intl Hosp Care Lvl 2
[2021-06-01] MEDS: ENOXAPARIN INJ 40 MG/0.4 ML SYR SQ SCH (21:48)
[2021-06-01] MEDS: QUEtiapine FUMARATE 25 MG TABLET PO SCH (21:52)
[2021-06-01] MEDS: PANTOprazole 40 MG TAB PO SCH (21:52)
[2021-06-02] MEDS: RESTASIS~ORDER AWAITING ACTION SCH ×2 (03:11→09:30)
--- NOTE | 2021-06-02 07:23 | Magnetic Resonance Report ---
MR brain wo con HISTORY: 76 years-old Female eval for cva . Acute strokelike symptoms COMPARISON: Head CT 05/30/2021 TECHNIQUE: Multiplanar multisequence MRI the brain was obtained without the use of IV contrast. FINDINGS: Exterminator Helper localizer images demonstrate no gross extracranial abnormality. Probable meningioma along the f franky cerebri measures 7 x 3 mm. No restricted diffusion to suggest acute or subacute infarct. Partiall y empty sella. No acute intracranial hemorrhage, midline shift, abnormal extra-axial collection, hydr ocephalus or intra-axial mass. Age-related involutional changes. Mild to moderate patchy T2/FLAIR hyp erintensities throughout the white matter are suggestive of chronic microvascular ischemic disease. N o pathologic blooming artifact. Senescent calcifications of the basal ganglia. Cerebral venous sinuses and major arterial flow voids are patent. The mastoid air cells are clear. Mi ld mucosal thickening of the ethmoid sinuses. The skull and soft tissues are within normal limits. Pr ior bilateral lens repair. IMPRESSION: 1. No acute intracranial abnormality. No acute or subacute infarct. 2. Age-related involutional changes with chronic microvascular ischemic disease. 3. Subcentimeter falx cerebri meningioma. ACT 112: Negative or not required by law. The above report was generated using voice recognition software. It may contain grammatical, syntax o r spelling errors. Electronically signed by: Boris Barajas M.D. 06/02/2021 7:22 AM
[2021-06-02 08:07] LABS: Basophils # (auto) 0.02 K/uL (0-0.2); Basophils % (auto) 0.4 %; Eosinophils # (auto) 0.15 K/uL (0-0.5); Eosinophils % (auto) 2.8 %; Hematocrit (blood only) 44.8 % (37-47); Hemoglobin 15.1 g/dL (12.0-16.0); Immature Granulocytes # (auto) 0.03 K/uL (0.00-0.02); Immature Granulocytes % (auto) 0.6 %; Lymphocytes % (auto) 24.2 %; Mean Corpuscular Hemoglobin 32.2 pg (25-34); Mean Corpuscular Hgb Conc 33.7 g/dL (32-36); Mean Corpuscular Volume 95.5 fL (80-100); Mean Platelet Volume 11.5 fL (7.4-10.4); Monocytes # (auto) 0.31 K/uL (0.11-0.59); Monocytes % (auto) 5.8 %; Neutrophils # (auto) 3.57 K/uL (1.4-6.5); Neutrophils % (auto) 66.2 %; Platelet Count 163 K/uL (130-400); RDW Coefficient of Variation 13.8 % (11.5-14.5); RDW Standard Deviation 48.7 fL (36.4-46.3); Red Blood Count 4.69 M/uL (4.2-5.4); White Blood Count 5.38 K/uL (4.8-10.8)
[2021-06-02 08:53] LABS: BUN Creatinine Ratio 18.5 (10-20); Calcium 8.6 mg/dl (8.5-10.1); Creatinine Clr Calc Pharmacy 45.2 ml/min; Est GFR (African American) 44.5 ml/min; Est GFR (Non-African American) 38.4 ml/min; Potassium 3.7 mmol/L (3.5-5.1)
[2021-06-02] MEDS ORDERED: SPIRONOLACTONE/HCTZ 25-25 PO SCH (09:00)
[2021-06-02] MEDS: ASPIRIN 81 MG ECTAB PO SCH (09:30)
[2021-06-02] MEDS: lamoTRIgine 100 MG TAB PO SCH (09:31)
[2021-06-02] MEDS: ACETAMINOPHEN 500 MG TAB PO SCH ×2 (09:31→13:39)
[2021-06-02] MEDS ORDERED: AMOXICILLIN/CLAVULANATE 875 MG TAB PO ONE (12:45)
--- NOTE | 2021-06-02 18:35 | Discharge Summary ---
Date of Service June 02, 2021 Admission HPI Per Admitting Provider The pt was brought in by her after collapsing at home, reportedly had her lithium changed due to renal dysfunction and started on lithium for her bipolar disorder. Over the last 2-3 days had changes in behavior instead of her pretreatment days. Reportedly the patient was eating and drinking less. On the day of presentation she reportedly was fearful leave her bedroom. When she was coaxed to the living room she stat and started a wall. Reportedly then she contorted her face had some shaking episodes of her shoulders and then she became limp and fell to the ground. Her could not get her off the ground and summoned 911 and they brought her to the emergency department initial screening for metabolic causes were negative with exception of a Covid positive PCR test. Patient reportedly had Covid infection and was vaccinated last in March 2021 she has had no focal Covid symptoms such as loss of taste or smell, diarrhea or upper respiratory symptoms and currently is not hypoxic in the ER. In the emergency department the patient was confabulating answers to questions with not trusting any of the healthcare providers interfacing with her. I spoke to psychiatry on-call who agrees to see her in the morning once metabolic causes have been ruled out. It is unclear whether this Covid test would count as a metabolic source of her encephalopathy. Subsequently recommendations for Seroquel 50 mg now and 50 every 6 as needed and also as needed Haldol will be administered. we will continue her Lamictal at this time. Initial concerns for seizure are not completely clear we may pursue an EEG but likely would wait till she is out of Covid isolation. If concern and a neurology evaluation is needed we will discuss this with neurology on-call Principal Diagnosis metabolic encephalopathy secondary to pseudomonas uti poa delirium superimposed on Biploar disorder covid + test status Discharge Data Allergies Allergy/AdvReac Type Severity Reaction Status Date / Time carbamazepine Allergy Unknown ITCHY, Verified 05/30/21 18:41 INVOLUNTARY BODY MOVEMENTS grass pollen-perennial rye, Allergy Unknown ITCHY EYES Verified 05/30/21 18:41 standar STUFFY mold Allergy Unknown ITCHY Verified 05/30/21 18:41 EYES, STUFFY ragweed pollen Allergy Unknown ITCHY Verified 05/30/21 18:41 EYES, STUFFY Consultations 05/30/21 16:51 ED Decision to Admit Stat 06/01/21 08:32 Consult Psychiatry Routine Ordered Studies 05/30/21 13:05 CT head/brain wo con Stat 06/01/21 18:54 MR brain wo con Routine Hospital Course (1) Bipolar disorder: Metabolic encephalopathy secondary to pseudomonas uti poa, resolving Continue using Seroquel at bedtime plus her typical Lamictal. Psychiatric consultation does not recommend any further in patient care. will have Dr Adams follow up as outpt Initial Covid positive status now Covid negative will still recommend home isoloation (2) Pseudomonas aeruginosa infection: Patient will be preliminary discharge on Augmentin will follow up with sensitivities and change antibiotics as needed (3) COVID: Unclear meeting of positive Covid PCR nasal testing. Patient's previously had a Covid infection and and was immunized in March 2021 this was the [employer] one-time vaccine I believe the stated that the date may have been March 12. We will have an airborne isolation at this time patient is not hypoxic needing any steroid treatment and without symptoms does not qualify for remdesivir treatment. Need to discuss with infection control the duration of isolation since she is asymptomatic at this time unless you count the confusion is one of her symptoms Repeat Covid testing 05/31 now negative, home isolation with last day 06/10 (4) Acute kidney injury: Resolved with hydration Total Time Total Time Spent Total Time Spent (In Minutes): It required greater than 30 minutes to prepare this patient for discharge Discharge Plan Discharge Items Patient Disposition: Home - Home Health Services Reason For Visit: ENCEPAHLOPOATHY,SEIZURE Discharge Diagnosis: encephalopathy resolved delirium resolved covid test positive Condition on Discharge: Fair Activity: Resume your previous activity Activity Comment: per home health Non-emergency contact: Primary Care Provider Call non-emergency contact if: you have any medication questions and your symptoms worsen Follow-up/Referrals: Pedro Moss, DO [Primary Care Provider] - 06/10/21 5:00 pm (TELEHEATH APPT DUE TO +COVID; DR APODACA) Diet: Regular Addtl Attending Provider Instructions: please follow up with Dr Adams by phone contact your primary care office to schedule a follow up once you are out of isolation from your positive covid test, that will be on or after june 10 Home Isolation COVID-19 Instructions The following information about Home Isolation is from the CDC Website: https://www.cdc.gov/coronavirus/2019-ncov/hcp/pbtjxvcn-jkxvnjn-zzgrnc.html Stay home except to get medical care People who are mildly ill with COVID-19 are able to isolate at home during their illness. You should restrict activities outside your home, except for getting medical care. Do not go to work, school, or public areas. Avoid using public transportation, ride-sharing, or taxis. Separate yourself from other people and animals in your home People: As much as possible, you should stay in a specific room and away from other people in your home. Also, you should use a separate bathroom, if available. Animals: You should restrict contact with pets and other animals while you are sick with COVID-19, just like you would around other people. Although there have not been reports of pets or other animals becoming sick with COVID-19, it is still recommended that people sick with COVID-19 limit contact with animals until more information is known about the virus. When possible, have another member of your household care for your animals while you are sick. If you are sick with COVID-19, avoid contact with your pet, including petting, snuggling, being kissed or licked, and sharing food. If you must care for your pet or be around animals while you are sick, wash your hands before and after you interact with pets and wear a face mask. Call ahead before visiting your doctor If you have a medical appointment, call the healthcare provider and tell them that you have or may have COVID-19. This will help the healthcare providers office take steps to keep other people from getting infected or exposed. Wear a face mask You should wear a face mask when you are around other people (e.g., sharing a room or vehicle) or pets and before you enter a healthcare providers office. If you are not able to wear a face mask (for example, because it causes trouble breathing), then people who live with you should not stay in the same room with you, or they should wear a face mask if they enter your room. Cover your coughs and sneezes Cover your mouth and nose with a tissue when you cough or sneeze. Throw used tissues in a lined trash can. Immediately wash your hands with soap and water for at least 20 seconds or, if soap and water are not available, clean your hands with an alcohol-based hand biofuels plant superintendent that contains at least 60% alcohol. Clean your hands often Wash your hands often with soap and water for at least 20 seconds, especially after blowing your nose, coughing, or sneezing; going to the bathroom; and befo re eating or preparing food. If soap and water are not readily available, use an alcohol-based hand biofuels plant superintendent with at least 60% alcohol, covering all surfaces of your hands and rubbing them together until they feel dry. Soap and water are the best option if hands are visibly dirty. Avoid touching your eyes, nose, and mouth with unwashed hands. Avoid sharing personal household items You should not share dishes, drinking glasses, cups, eating utensils, towels, or bedding with other people or pets in your home. After using these items, they should be washed thoroughly with soap and water. Clean all high-touch surfaces everyday High touch surfaces include counters, tabletops, doorknobs, bathroom fixtures, toilets, phones, keyboards, tablets, and bedside tables. Also, clean any surfaces that may have blood, stool, or body fluids on them. Use a household cleaning spray or wipe, according to the label instructions. Labels contain instructions for safe and effective use of the cleaning product including precautions you should take when applying the product, such as wearing gloves and making sure you have good ventilation during use of the product. Monitor your symptoms Seek prompt medical attention if your illness is worsening (e.g., difficulty breathing).Beforeseeking care, call your healthcare provider and tell them that you have, or are being evaluated for, COVID-19. Put on a face mask before you enter the facility. These steps will help the healthcare providers office to keep other people in the office or waiting room from getting infected or exposed. Ask your healthcare provider to call the local or state health department. Persons who are placed under active monitoring or facilitated self- monitoring should follow instructions provided by their local health department or occupational health professionals, as appropriate. When working with your local health department check their available hours. If you have a medical emergency and need to call 911, notify the dispatch personnel that you have, or are being evaluated for COVID-19. If possible, put on a face mask before emergency medical services arrive. Discontinuing home isolation Patients with confirmed COVID-19 should remain under home isolation precautions until the risk of secondary transmission to others is thought to be low. The decision to discontinue home isolation precautions should be made on a [id number] basis, in consultation with healthcare providers and state and local health departments. Pending Studies at Discharge: No Stand-Alone Forms: My [facility] [address], Smoking Cessation Medications and DC Order Prescriptions: New quetiapine 25 mg Tablet 50 mg PO HS Qty: 30 RF: 0 amoxicillin-pot clavulanate [Augmentin] 875-125 mg tablet 1 tab PO BID Qty: 14 RF: 0 Continued acetaminophen [Tylenol Arthritis Pain] 650 mg Tablet Extended Release 2 tab PO BID RF: 0 ta-7-vff-epa-fish oil-vit D3 [Fish Oil-Vit D3] 300-1,000-1,000 mg-mg-unit Capsule 2 cap PO DAILY RF: 0 lamotrigine [Lamictal] 200 mg Tablet 200 mg PO QAM RF: 0 simvastatin 10 mg Tablet 10 mg PO HS RF: 0 aspirin 81 mg Tablet,Delayed Release (Dr/Ec) 1 tab PO QAM RF: 0 desloratadine [Clarinex] 5 mg Tablet 5 mg PO DAILY RF: 0 omeprazole magnesium [Prilosec OTC] 20 mg Tablet,Delayed Release (Dr/Ec) 40 mg PO QPM RF: 0 Restasis 0.05 % Dropperette 1 drp OPHTHALMIC (EYE) BID RF: 0 sodium chloride [Saline Nasal] 0.65 % Aerosol,[place] 1 spray INTRANASAL Q8H PRN (Reason: Congestion) RF: 0 naproxen sodium 220 mg Capsule 220 mg PO Q8 PRN (Reason: Pain) RF: 0 Discontinued spironolacton-hydrochlorothiaz 25-25 mg Tablet 1 tab PO QAM RF: 0 Discharge Orders: Discharge Order (Routine); Ordered 06/02/21 Ordered By: Sridhar Short Admission Data Admit Date/Time: 05/30/21 18:38 Attending Provider: Sridhar Short Admit Provider: Sridhar Short Primary Care Provider: Pedro Moss Other Providers: Sridhar Short ; Maria Luz Srinivasan ; Dr Sami ; Monica Aj ; Steve Castro Other Interventions: Discharge Summary Assessment (RN) Last Done: 06/02/21 14:07 Coding Level of Care Code D/C DAY MANAGEMENT >30 MINS Diagnoses Bipolar disorder F31.9 COVID U07.1 Acute kidney injury N17.9 Pseudomonas aeruginosa infection A49.8
--- NOTE | 2021-06-05 18:09 | Communication Note ---
Date of Service: June 05, 2021 I phoned the patient after her urine culture result both Pseudomonas Arbinoxa and Enterococcus faecalis. She was prescribed Augmentin. Although the Pseud omonas was not tested against Augmentin it was sensitive to piperacillin tazobactam and the Enterococcus was sensitive to ampicillin. Patient states she was doing well and having no urinary complaints and her encephalopathy improved. She is on Covtx home isolation has a phone call with her PCP on 06/06. Recommended she continue her Augmentin therapy as prescribed and discussed with her PCP about retesting her urine once her course is complete
== END 2021-06-02 15:19 | disposition home health service (06) | DRG 885 ==
LOC: ED 12:16 → 2S 18:38 → 3E 05-31 19:27